=== PATIENT | female | born 1965 | race Caucasian/White ===

== ENCOUNTER 2020-07-11 09:02 | Outpatient (CLI) | payer OTHER, SELFPAY ==
--- NOTE | ~2020-07-11 | MM_ITS ---
EXAMINATION: MM scrn wicho implant BI w carlos HISTORY: Screening mammogram TECHNIQUE: Craniocaudal and mediolateral oblique 3-D tomosynthesis images with implant displacement a nd synthetic 2-D images were generated. Craniocaudal and mediolateral oblique views of the breasts wi thout implant displacement were obtained using full field digital mammography. CAD analysis was submi tted and interpreted. COMPARISON: 04/30/2019, 09/01/2017, 04/27/2015 BREAST PARENCHYMAL COMPOSITION: The breasts are extremely dense, which lowers the sensitivity of mamm ography. FINDINGS: There is no evidence of suspicious mass, calcification, or architectural distortion to sugg est malignancy in either breast. There has been no suspicious interval change. IMPRESSION: 1. No mammographic evidence of malignancy. 2. Recommend routine screening mammography in one year. BI-RADS Category 1: Negative Reviewed, dictated and finalized at location A. [employer]
== END 2020-07-11 09:03 | disposition home or self-care (01) ==
LOC: ANHIMG 09:05
PROVIDERS: PCP Internal Medicine; Visit Provider Advanced Practice Midwife
DX: Z12.31 Encounter for screening mammogram for malignant neoplasm of breast (principal)
CPT/HCPCS: 77063; 77067

== ENCOUNTER 2021-08-28 15:11 | Outpatient (CLI) | payer OTHER, SELFPAY ==
--- NOTE | ~2021-08-28 | MM_ITS ---
EXAMINATION: MM scrn wicho implant BI w carlos HISTORY: Screening mammogram TECHNIQUE: Craniocaudal and mediolateral oblique 3-D tomosynthesis images with implant displacement a nd synthetic 2-D images were generated. Craniocaudal and mediolateral oblique views of the breasts wi thout implant displacement were obtained using full field digital mammography. CAD analysis was submi tted and interpreted. COMPARISON: July 11, 2020, April 30, 2019, September 01, 2017 bilateral implant screening mammogram examinations BREAST PARENCHYMAL COMPOSITION: The breasts are extremely dense, which lowers the sensitivity of mamm ography. FINDINGS: There is no evidence of suspicious mass, calcification, or architectural distortion to sugg est malignancy in either breast. There has been no suspicious interval change. IMPRESSION: 1. No mammographic evidence of malignancy. 2. Recommend routine screening mammography in one year. BI-RADS Category 1: Negative Reviewed, dictated and finalized at location A.
== END 2021-08-28 15:12 | disposition home or self-care (01) ==
LOC: ANHIMG 15:12
PROVIDERS: PCP Internal Medicine; Visit Provider Advanced Practice Midwife
DX: Z12.31 Encounter for screening mammogram for malignant neoplasm of breast (principal)
CPT/HCPCS: 77063; 77067

== ENCOUNTER → 2021-09-18 10:39 | Outpatient (CLI) | payer OTHER, SELFPAY ==
--- NOTE | ~2021-09-18 | CT_ITS ---
EXAMINATION: CT orbit BI wo/w con EXAM DATE: 09/18/2021 11:17 INDICATION: Trigeminal neuralgia. Pain behind left eye. Postnasal drip. TECHNIQUE: Spiral CT of the orbits was acquired in the axial plane without and then with intravenous injection of 75 mL Omnipaque 350. Coronal reformatted images were also reviewed. The dose-length pr oduct (DLP) for this examination was 450.96 mGy-cm. The exposure was tailored according to patient s ize, and iterative reconstruction (ASIR) was used as additional dose reduction technique. There is n o prior study for comparison. FINDINGS: There are no displaced acute nasal bone fractures. The mandible, sinuses and orbits are in tact. The orbits, globes and extraocular muscles are unremarkable. The visualized sinuses and mas toid air cells are well aerated. Pterygopalatine fossae are unremarkable. Meckel's caves have expec tayo appearance, density, symmetry. IMPRESSION: Unremarkable CT orbits exam. Reviewed, dictated and finalized at location B.
== END ==
PROVIDERS: PCP Internal Medicine; Visit Provider Ophthalmology
DX: G50.0 Trigeminal neuralgia (principal)
CPT/HCPCS: 70482; Q9967

== ENCOUNTER 2021-10-17 15:08 | Outpatient (CLI) | payer OTHER, SELFPAY ==
--- NOTE | ~2021-10-17 | DEXA_ITS ---
Bone Density Report Name: AARON HAUSER Age: 56 Sex: Female Ethnicity: White Date of : 1965 Indication: postmenopausal; screening for osteoporosis; anorexia or bulimia; Referring Provider: EZIO SIERRA Study: Bone densitometry was performed. Exam Date: October 17, 2021 Accession number: [id number] Bone Density: Region BMD T-score Z-score Classification AP Spine(L1-L4) 1.261 1.9 3.2 Normal Femoral Neck (Left) 0.658 -1.7 -0.6 Osteopenia Total Hip (Left) 0.854 -0.7 0.1 Normal Femoral Neck (Right) 0.704 -1.3 -0.1 Osteopenia Total Hip (Right) 0.875 -0.5 0.2 Normal Total Hip Mean 0.865 -0.6 0.2 Normal World Health Organization criteria for BMD impression classify patients as: Normal (T-score at or above -1.0), Osteopenia (T-score between -1.0 and -2.5), or Osteoporosis (T-score at or below -2.5). 10-year Fracture Risk(1): Major Osteoporotic Fracture 6.7% Hip Fracture 0.7% Reported Risk Factors: [place] (), Neck BMD=0.658, BMI=19.4 (1) FRAX(R) Version 3.08. Fracture probability calculated for an untreated patient. Fracture probability may be lower if the patient has received treatment. Previous Exams: Region Exam Age BMD T-score BMD Change BMD Change Date g/cm2 vs Baseline vs Previous AP Spine (L1-L4) 10/17/2021 56 1.261 1.9 -0.072 (-5.4%) -0.072 (-5.4%) 04/30/2019 53 1.333 2.6 Total Hip(Left) 10/17/2021 56 0.854 -0.7 -0.050 (-5.5%) -0.050 (-5.5%) 04/30/2019 53 0.904 -0.3 Total Hip(Right) 10/17/2021 56 0.875 -0.5 -0.041 (-4.5%) -0.041 (-4.5%) 04/30/2019 53 0.916 -0.2 *Denotes significance at 95% confidence level, LSC for AP Spine = 0.022 g/cm2, LSC for Total Hip = 0.027 g/cm2 Clinical Information Provided by Patient: Has the following medical conditions: Anorexia or Bulimia Patient maximum height was 64 Menopause Age: 55 Drinks caffeinated beverages Onset of menses at age 9 Number of children 3 Missed period for more than 6 months in a row Impression: The patient has low bone mass, based on the Left Femoral Neck T-score. The patient has an estimated ten-year risk of hip fracture of 0.7% and an estimated ten-year risk of major fracture of 6.7%, based on the WHO FRAX algorithm. The BMD for the AP Spine (L1-L4) decreased, changing by -5.4% since the last DXA exam. The BMD for the Total Hip(Left) decreased, changing by -5.5% since the last DXA exam. The BMD for the Total Hip(Rig
== END 2021-10-17 15:09 | disposition home or self-care (01) ==
LOC: ANHIMG 15:09
PROVIDERS: PCP Internal Medicine; Visit Provider Advanced Practice Midwife
DX: M81.0 Age-related osteoporosis without current pathological fracture (principal); M85.852 Other specified disorders of bone density and structure, left thigh; M85.851 Other specified disorders of bone density and structure, right thigh
CPT/HCPCS: 77080

== ENCOUNTER 2022-03-06 03:52 | Emergency (ER) | payer OTHER, SELFPAY ==
--- NOTE | ~2022-03-06 | XR_ITS ---
EXAMINATION: XR hand LT min 3V DATE: 03/06/2022 04:35 INDICATION: Left ring finger injury. TECHNIQUE: 4 views of left hand were obtained. COMPARISON: None. FINDINGS: Bone alignment is normal. There is a fracture deformity of base of fourth middle phalanx. T here is mild osteoarthritis of first carpometacarpal joint, first metacarpophalangeal joint, third an d fourth proximal interphalangeal joints, and second distal interphalangeal joint. IMPRESSION: 1. Fracture deformity of base of fourth middle phalanx, which may be old. 2. Mild polyarticular osteoarthritis. Reviewed, dictated and finalized at location A.
--- NOTE | 2022-03-06 04:19 | ED.GENADULT ---
HPI - General Adult General Chief complaint: Extremity Injury, Upper Stated complaint: left ring finger injury Time Seen by Provider: 03/06/22 03:54 History of Present Illness HPI narrative: 56-year-old female presenting to the emergency department for evaluation of a injury to her left ring finger. Patient states she was walking her dog when the dog ran and caused an injury to her finger. Patient states she did have some minor swelling to her finger prior to going to bed when she woke up in the night her ring finger was significantly swollen and she cannot get her rings off. Related Data Allergies Allergy/AdvReac Type Severity Reaction Status Date / Time Penicillins Allergy Hives Verified 03/06/22 03:53 Review of Systems Review of Systems: CONSTITUTIONAL: Denies fever, chills, or sweats. EYES: Denies visual changes, redness, or discharge. ENT: Denies rhinorrhea, congestion, sore throat, or otalgia. CARDIOVASCULAR: Denies chest pain, palpitations, or edema. RESPIRATORY: Denies cough or dyspnea. GASTROINTESTINAL: Denies abdominal pain, nausea, vomiting, or diarrhea. GENITOURINARY: Denies dysuria or hematuria. SKIN: Swelling to left ring finger MUSCULOSKELETAL: Swelling of left ring finger NEUROLOGIC: Denies headache, numbness, or weakness. [facility] Family History Family History (Updated 09/13/16 @ 23:56 by DOCTOR UNKNOWN) Sibling Patient's brother is in good health Father Family history of chronic obstructive pulmonary disease, Onset Age: 69 Family history of irritable bowel syndrome Family history of malignant neoplasm of urinary bladder Patient's father is Mother Family history of malignant neoplasm of ovary, Onset Age: 66 Patient's mother is Social History Social History Alcohol intake: current Exam Narrative: APPEARANCE: Well appearing, no pain, no distress, well-nourished. HEAD: normocephalic, atraumatic. EYES: PERRLA/EOMI, conjunctivae clear. NOSE: Normal no drainage NECK: Supple. No adenopathy, no masses. RESPIRATORY: Airway patent, respirations nonlabored. Clear to auscultation bilaterally, no rales, rhonchi, wheezing. CARDIOVASCULAR: Regular rate and rhythm without murmurs rubs or gallops. ABDOMINAL: Soft, nontender, nondistended, normal bowel sounds MUSCULOSKELETAL: Moves all extremities. Strength/ROM intact, No edema, No calf tenderness. Ecchymosis and tenderness to left ring finger. NEURO: Alert. Cranial nerves II through XII intact. Grossly intact SKIN: Warm, dry. Normal Color PSYCHIATRIC: Normal affect/mood. Course Course Emergency Course: Patient had 2 rings that were removed from the left ring finger. Patient did feel improved after removal of the rings. X-ray showed no acute fractures or dislocations. Patient does have normal range of motion of the affected finger other than some limitation of range of motion due to swelling. Patient was encouraged to have close follow-up with her primary care physician. Vital Signs Vital signs: Vital Signs Pulse Rate 88 03/06/22 04:59 Respiratory Rate 18 03/06/22 04:59 Blood Pressure 130/88 03/06/22 04:59 Pulse Oximetry 100 03/06/22 04:59 Pulse Rate 88 03/06/22 04:59 Respiratory Rate 18 03/06/22 04:59 Blood Pressure 130/88 03/06/22 04:59 Pulse Oximetry 100 03/06/22 04:59 Procedures Foreign Body Removal Foreign Body #1: Foreign Body Removal Time: 04:20 Time Out Performed: yes Site: left and hand Description of foreign body: other (wedding ring) Sedation/Analgesia: none Technique: other (ring removal) Complications: none Post-procedure exam: awake, alert Medical Decision Making Vital Signs Vital Signs: Vital Signs Pulse Rate 88 03/06/22 04:59 Respiratory Rate 18 03/06/22 04:59 Blood Pressure 130/88 03/06/22 04:59 Pulse Oximetry 100 03/06/22 04:59 Pulse Rate 88 03/06/22 04:59 Respiratory
[2022-03-06 04:59] VITALS: BP 130/88; PULSE 88; RESP 18; O2SAT 100
--- NOTE | 2022-03-12 02:49 | PC.NURSE ---
The wound was on the left finger not the right finger.
== END 2022-03-06 05:04 | disposition home or self-care (01) ==
PROVIDERS: Emergency Provider Emergency Medicine; PCP Internal Medicine
DX: S69.92XA Unspecified injury of left wrist, hand and finger(s), initial encounter (principal); X58.XXXA Exposure to other specified factors, initial encounter; Y93.K1 Activity, walking an animal
CPT/HCPCS: 73130; 99283

== ENCOUNTER 2024-06-03 14:54 | Outpatient (CLI) | payer OTHER, SELFPAY ==
--- NOTE | ~2024-06-03 | MM_ITS ---
EXAMINATION: MM scrn wicho implant BI w carlos HISTORY: Screening. Retropectoral silicone implants. TECHNIQUE: Craniocaudal and mediolateral oblique 3-D tomosynthesis images were obtained and synthetic 2-D images were generated. CAD analysis was submitted and interpreted. Implant displaced views were also performed COMPARISON: 08/28/2021 and dating back to 09/01/2017 BREAST PARENCHYMAL COMPOSITION: The breasts are extremely dense, which lowers the sensitivity of mamm ography. FINDINGS: Stable parenchymal pattern without suspicious microcalcifications, architectural distortion, discrete masses or significant asymmetry. IMPRESSION: 1. No mammographic evidence of malignancy. 2. Recommend routine screening mammography in one year. BI-RADS Category 1: Negative Reviewed, dictated and finalized at location A. RIBUTION DRIVER
== END 2024-06-03 14:55 | disposition home or self-care (01) ==
LOC: MICIMG 14:55
PROVIDERS: PCP Internal Medicine; Visit Provider Nurse Practitioner
DX: Z12.31 Encounter for screening mammogram for malignant neoplasm of breast (principal); Z13.820 Encounter for screening for osteoporosis
CPT/HCPCS: 77063; 77067

== ENCOUNTER 2024-07-05 08:02 | Outpatient (CLI) | payer OTHER, SELFPAY ==
--- NOTE | ~2024-07-05 | DEXA_ITS ---
Bone Density Report Name: AARON HAUSER Age: 58 Sex: Female Ethnicity: White Date of : 1965 Indication: postmenopausal; screening for osteoporosis; Referring Provider: ASIA, THONG Samson Study: Bone densitometry was performed. Exam Date: July 05, 2024 Accession number: [id number] Bone Density: Region BMD T-score Z-score Classification AP Spine(L1-L4) 1.147 0.9 2.3 Normal Femoral Neck (Left) 0.596 -2.3 -1.0 Osteopenia Total Hip (Left) 0.803 -1.1 -0.2 Osteopenia Femoral Neck (Right) 0.643 -1.9 -0.6 Osteopenia Total Hip (Right) 0.778 -1.3 -0.4 Osteopenia Total Hip Mean 0.791 -1.2 -0.3 Osteopenia World Health Organization criteria for BMD impression classify patients as: Normal (T-score at or above -1.0), Osteopenia (T-score between -1.0 and -2.5), or Osteoporosis (T-score at or below -2.5). 10-year Fracture Risk(1): Major Osteoporotic Fracture 9.0% Hip Fracture 1.5% Reported Risk Factors: [place] (), Neck BMD=0.596, BMI=19.4 (1) FRAX(R) Version 3.08. Fracture probability calculated for an untreated patient. Fracture probability may be lower if the patient has received treatment. Previous Exams: Region Exam Age BMD T-score BMD Change BMD Change Date g/cm2 vs Baseline vs Previous AP Spine (L1-L4) 07/05/2024 58 1.147 0.9 -0.185 (-13.9% -0.114 (-9.0%) 10/17/2021 56 1.261 1.9 -0.072 (-5.4%) -0.072 (-5.4%) 04/30/2019 53 1.333 2.6 Total Hip(Left) 07/05/2024 58 0.803 -1.1 -0.100 (-11.1% -0.050 (-5.9%) 10/17/2021 56 0.854 -0.7 -0.050 (-5.5%) -0.050 (-5.5%) 04/30/2019 53 0.904 -0.3 Total Hip(Right) 07/05/2024 58 0.778 -1.3 -0.139 (-15.1% -0.098 (-11.1% 10/17/2021 56 0.875 -0.5 -0.041 (-4.5%) -0.041 (-4.5%) 04/30/2019 53 0.916 -0.2 *Denotes significance at 95% confidence level, LSC for AP Spine = 0.022 g/cm2, LSC for Total Hip = 0.027 g/cm2 # Denotes dissimilar scan types or analysis methods Clinical Information Provided by Patient: Has used the following medications: Vitamin D, Calcium Patient maximum height was 64 Menopause Age: 55 Drinks caffeinated beverages Onset of menses at age 9 Number of children 3 Missed period for more than 6 months in a row Impression: The patient has low bone mass, based on the Left Femoral Neck T-score. The patient has an estimated ten-year risk of hip fracture of 1.5% and an estimated ten-year risk of major fracture of 9%, based on the WHO FRAX algorithm. No significant bone loss was observed. Discussion: BONE DENSITY IS LOW AT ONE OR MORE SKELETAL SITES. This patient's lowest T-score is low at one or more skeletal sites. It meets the World Health Organization's (WHO) criteria for ?low bone mass? (T-score between -1.0 and -2.5). The patient's 10-year risk of fracture as calculated by FRAX is less than the threshold where pharmacological therapy is recommended by the National Osteoporosis Foundation (NOF). However, all treatment decisions require clinical judgment and consideration of individual patient factors, including patient preferences, comorbidities, previous drug use, risk factors not captured in the FRAX model (e.g., frailty, falls, vitamin D deficiency, increased bone turnover, interval significant decline in bone density) and possible under or overestimation of fracture risk by FRAX. The patient should follow a healthful lifestyle (good nutrition with adequate calcium and vitamin D, and appropriate weight-bearing exercise). Follow-Up: Consider repeating this study in 2 to 3 years to reassess this patient's status, or sooner if there is some new clinical indication. Reported by: TUAN on 07/05/2024 8:38:00 AM. Reviewed, dictated and finalized at location ASweta LOZADA
--- OUTSIDE RECORDS SUMMARY | 2024-07-05 08:16 | XMS_ITS | Encounter Summary ---
Author Organization [facility] Address [address] [place] [address]. [place], [place] [id number] [place] [address] Care Team Providers Care Spooling Supervisor Name Role Phone Jeffrey Szymanski MD Primary Care Provider [phone] Encounter Details Date Type Department Care Team (Late st Contact Info) Description 09/24/2023 BodeTreet Message Enc [facility] Multispecialty Care - [facility] [address] [facility], [address] [place] [address] Ahsan Sinha MD [address] [place] [address] MRI report Social History Tobacco Use Types Packs/Day Years Used Date Smoking Tobacco: Never Smokeless Tobacco: Never Alcohol Use Standard Drinks/Week Comments Yes 3 (1 standard drink = 0.6 oz pur e alcohol) Maybe once a week AUDIT-C Answer Date Recorded Frequency of Alcohol Consumption 2-4 times a fri03/18/2019 Average Number of Drinks 3 or 4 019 Frequency of Binge Drinking Never 03/09 PHQ-2 Answer Date Recorded Patient Health Questionnaire-2 Score 0 08/19/2023 Comments No Sex and Gender Information Value Date Recorded Sex Assigned at Not on file Legal Sex Female 6:36 PM CDT Gender Identity Female 08/24/2021 6:15 AM CDT Sexual Orientation Not on file documented as of this encounter Progress Notes * Maritza Dial MA - 09/25/2023 10:45 AM CDT Spoke to pt. Regarding MRI results, explained she can continue her daily routines, just need to notlift heavy objects and be careful not to fall. Pt. Verbalized understanding. documented in this encounter Plan of Treatment Upcoming Encounters Date Type Department Care Team (Late st Contact Info) Description 07/29/2024 12:30 PM HAND I THERMAL CUTTER Appointment [facility] [place] [address] Hanna Landon APRN 3 [facility] [address] [place] [address] 08/05/2024 3:20 PM HAND I THERMAL CUTTER Office Visit [facility] Medical [facility] Multispecialty Care - [facility] [address] [facility], [address] [place] [address] Denis Harvey MD [address] [place] [address] 08/26/2024 10:20 AM CDT Office Visit [facility] Family & Internal Medicine [address] [address] Jeffrey Szymanski MD [address] [place] [address] documented as of this encounter Visit Diagnoses Not on filedocumented in this encounter Additional Health Concerns Assessment Noted Time PHQ-9 Depression Total Score: 1 07/01/19 23 4:01 PM HAND I THERMAL CUTTER documented as of this encounter Care Teams Spooling Supervisor Relationship Specialty Start Date End Date Jeffrey Szymanski MD [address] [place] [address] PCP - General 12/15/15 documented as of this encounter
--- OUTSIDE RECORDS SUMMARY | 2024-07-05 08:17 | XMS_ITS | Encounter Summary ---
Author Organization [facility] Address [address] [place] [address]. [place], [place] [id number] [place] [address] Care Team Providers Care Gaming Manager Name Role Phone Jeffrey Szymanski MD Primary Care Provider [phone] Encounter Details Date Type Department Care Team (Late st Contact Info) Description 03/01/2022 Mr. Numbert Message Enc [facility] Family & Internal Medicine [place] [address] [place] [address] Jeffrey Szymanski MD [address] [place] [address] [phone] Blood test results Social History Tobacco Use Types Packs/Day Years [...] Drinking Never 03/09 PHQ-2 Answer Date Recorded PHQ-2 Score - If the patient scores above 3, please move on to questions 3-9 0 08/24/2021 Comments No Sex and Gender Information Value Date Recorded Sex Assigned at Not on file Legal Sex Female 6:36 PM CDT Gender Identity Female 08/24/2021 6:15 AM CDT Sexual Orientation Not on file COVID-19 Exposure Response Date Recorded In the last 10 days, have yo u been in contact with someone who was confirmed or suspected to have Coronavirus/COVID-19? No / Unsure 02/28/2022 7:16 AM CDT documented as of this encounter Plan of Treatment Upcoming Encounters Date Type Department Care Team (Late st Contact Info) Description 07/29/2024 12:30 PM AIRPORT GUIDE Appointment [facility] [address] Hanna Landon, KATHERIN [address] [facility] [address] [place] [address] 08/05/2024 3:20 PM AIRPORT GUIDE Office Visit [facility] Medical Group Multispecialty Care - [facility] [address] [facility], [address] [place] [address] Denis Harvey MD 3 [place] [address] 08/26/2024 10:20 AM CDT Office Visit [facility] Family & Internal Medicine - [address] [address] Jeffrey Szymanski MD [address] [place] [address] documented as of this encounter Visit Diagnoses Not on filedocumented in this encounter Additional Health Concerns Assessment Noted Time PHQ-9 Depression Total Score: 0 08/25/19 10:05 AM CDT documented as of this encounter Care Teams Gaming Manager Relationship Specialty Start Date End Date Jeffrey Szymanski MD [address] [place] [address] PCP - General 12/15/15 documented as of this encounter
--- OUTSIDE RECORDS SUMMARY | 2024-07-05 08:17 | XMS_ITS | Encounter Summary ---
Author Organization [facility] Address [address] [place] [address]. [place], [place] [address] [place] [address] Care Team Providers Care Ceramist Name Role Phone Jeffrey Szymanski MD Primary Care Provider [phone] Encounter Details Date Type Department Care Team (Latest Contact Info) Description 06/25/2024 Scan [facility] Scanned, Doc Med Group Social History Tobacco Use Types Packs/Day Years Used Date Smoking Tobacco: Never Smokeless Tobacco: Never Alcohol Use Standard Drinks/Week Comments Yes 3 (1 standard drink = 0.6 oz pur e alcohol) Maybe once a week [facility] Utilities Answer Date Recorded In the past 12 months has e [employer], gas, oil, or water [employer] threatened to shut off services in your home? No 10/17/2023 Humiliation, Afraid, Rape, and Kick questionnair e Answer Date Recorded Within the last year, have y ou been afraid of your partner or ex-partner? No 10/17/2023 Within the last year, have y ou been humiliated or emotionally abused in other ways by your partner or ex-partner? No Within the last year, have y ou been kicked, hit, slapped, or otherwise physically hurt by your partner or ex-partner? No 10/17/2023 Within the last year, have y ou been raped or forced to have any kind of sexual activity by your partner or ex-partner? No 10/17/2023 AUDIT-C Answer Date Recorded Frequency of Alcohol Consumption 2-4 times a fri03/18/2019 Average Number of Drinks 3 or 4 019 Frequency of Binge Drinking Never 03/09 Overall Financial Resource Strain (CARDIA) Answe r Date Recorded How hard is it for you to pa y for the very basics like food, housing, medical care, and heating? Not hard at all 10/17/2023 PHQ-2 Answer Date Recorded Patient Health Questionnaire-2 Score 0 08/19/2023 Hunger Vital Sign Answer Date Recorded Within the past 12 months, y ou worried that your food would run out before you got the money to buy more. Never true 10/17/19 24 Within the past 12 months, t he food you bought just didn't last and you didn't have money to get more. Never true 10/17/2023 PRAPARE - Transportation Answer Date Re corded In the past 12 months, has l ack of transportation kept you from medical appointments or from getting medications? No 10/07 In the past 12 months, has l ack of transportation kept you from meetings, work, or from getting things needed for daily living? No 10/17/2023 Housing Stability Vital Sign Answer Solomon e Recorded In the last 12 months, was t here a time when you were not able to pay the mortgage or rent on time? No 10/17/2023 In the past 12 months, how m any times have you moved where you were living? 1 10/17/2023 At any time in the past 12 m [facility], were you homeless or living in a correction (including now)? No 10/17/2023 Comments No Sex and Gender Information Value Date Recorded Sex Assigned at Not on file Legal Sex Female 6:36 PM CDT Gender Identity Female 08/24/2021 6:15 AM CDT Sexual Orientation Not on file documented as of this encounter Functional Status * Are you deaf or do you have serious difficulty hearing Answer Date of Assessment Author Status No 10/17/2023 5:38 PM CDT Maicol Simon RN Active * Are you blind or do you have serious difficulty seeing, even when wearing glasses? Answer Date of Assessment Author Status No 10/17/2023 5:38 PM CDT Maicol Simon RN Active * Do you have serious difficulty walking or climbing stairs? Answer Date of Assessment Author Status No 10/17/2023 5:38 PM CDT Maicol Simon RN Active * Do you have difficulty dressing or bathing? Answer Date of Assessment Author Status No 10/17/2023 5:38 PM CDT Maicol Simon RN Active * Because of a physical, mental, or emotional condition, do you have difficulty doing errands alone such as visiting a doctor's office or shopping? Answer Date of Assessment Author Status No 10/17/2023 5:38 PM CDT Maicol Simon RN Active documented as of this encounter Mental Status * Because of a physical, mental, or emotional condition, do you have serious difficulty concentrating, remembering, or making decisions? Answer Entry Date Author Status No 10/17/2023 5:38 PM CDT Maicol Simon RN Active documented in this encounter Plan of Treatment Upcoming Encounters Date Type Department Care Team (Late st Contact Info) Description 07/29/2024 12:30 PM RURAL SOCIOLOGIST Appointment [facility] [place] [address] Hanna Landon APRN 3 [facility] [address] [place] [address] 08/05/2024 3:20 PM RURAL SOCIOLOGIST Office Visit [facility] Multispecialty Care - [facility] [address] [facility], [address] [place] [address] Denis Harvey MD 3 [place] [address] 08/26/2024 10:20 AM CDT Office Visit [facility] Family & Internal Medicine - [address] [phone] Jeffrey Szymanski MD [address] [place] [address] documented as of this encounter Visit Diagnoses Not on filedocumented in this encounter Additional Health Concerns Assessment Noted Time PHQ-9 Depression Total Score: 1 07/01/19 23 4:01 PM RURAL SOCIOLOGIST documented as of this encounter Care Teams Ceramist Relationship Specialty Start Date End Date Jeffrey Szymanski MD [address] [place] [address] PCP - General 12/15/15 documented as of this encounter
--- OUTSIDE RECORDS SUMMARY | 2024-07-05 08:17 | XMS_ITS | Continuity of Care Document ---
Author Name [facility] Organization [facility] Care Team Providers Care Color Expert Name Role Phone [facility] Unavailable Unavailable Medications Combined list of outpatient medications from Department of Defense and Veterans Affairs facilities.Medications provided include 1) outpatient medications from the last 15 months, and 2) patient-reported medications. Medication Details Route Status Patient Instructions Prescription Expires Prescription Number Last Dispense Date Ordering Provider Order Date Order Qty Source DIAZEPAM (DIAZEPAM), 5MG, TABLET, ORAL, IVAX PHARMACEUT, 500 ea. BOTTLE Active [id number] 2023 30 Pharmac y Data Transac tion Service Facilit y ESCITALOPRA M OXALATE (escitalopr am oxalate), 20 MG, TABLET, ORAL, [facility], 1000 ea. BOTTLE Active [id number] 4 2023 45 Pharmac y Data Transac tion Service Facilit y HYDROCODONE -ACETAMINOP HEN (HYDROCODON E/ACETAMINO PHEN), 5MG-325MG, TABLET, ORAL, MALLINCKROD T PH, 500 ea. BOTTLE Active [id number] 4 2023 50 Pharmac y Data Transac tion Service Facilit y LEVOTHYROXI NE SODIUM (levothyrox ine sodium), 88 MCG, TABLET, ORAL, AMNEAL PHARMACE, 100 ea. BOTTLE Active [id number] 4 2023 90 Pharmac y Data Transac tion Service Facilit y LEVOTHYROXI NE SODIUM (levothyrox ine sodium), 88 MCG, TABLET, ORAL, AMNEAL PHARMACE, 100 ea. BOTTLE Active [id number] 2023 90 Pharmac y Data Transac tion Service Facilit y LEVOTHYROXI NE SODIUM (levothyrox ine sodium), 88 MCG, TABLET, ORAL, AMNEAL PHARMACE, 100 ea. BOTTLE Active [id number] 2022 90 Pharmac y Data Transac tion Service Facilit y METHYLPHENI DATE HCL (methylphen idate HCl), 10 MG, TABLET, ORAL, [employer] 100 ea. BOTTLE Cancele d [id number] : 2023 0 Pharmac y Data Transac tion Service Facilit y METHYLPHENI DATE HCL (methylphen idate HCl), 10 MG, TABLET, ORAL, [employer] 100 ea. BOTTLE Active [id number] 2023 60 Pharmac y Data Transac tion Service Facilit y METHYLPHENI DATE HCL (METHYLPHEN IDATE HCL), 10 MG, TABLET, ORAL, MALLINCKROD T PH, 100 ea. BOTTLE Active [id number] 2023 60 Pharmac y Data Transac tion Service Facilit y METHYLPHENI DATE HCL (METHYLPHEN IDATE HCL), 20 MG, TABLET, ORAL, MALLINCKROD T PH, 100 ea. BOTTLE Cancele d [id number] : 2022 0 Pharmac y Data Transac tion Service Facilit y METHYLPHENI DATE HCL ER (CD) (methylphen idate HCl), 20 MG, CPBP 30-70, ORAL, MALLINCKROD T PH, 100 ea. BOTTLE Active [id number] 2023 30 Pharmac y Data Transac tion Service Facilit y METHYLPHENI DATE HCL ER (CD) (methylphen idate HCl), 20 MG, CPBP 30-70, ORAL, MALLINCKROD T PH, 100 ea. BOTTLE Active [id number] 2023 30 Pharmac y Data Transac tion Service Facilit y METHYLPHENI DATE HCL ER (CD) (methylphen idate HCl), 20 MG, CPBP 30-70, ORAL, MALLINCKROD T PH, 100 ea. BOTTLE Active [id number] 2023 30 Pharmac y Data Transac tion Service Facilit y METHYLPHENI DATE HCL ER (CD) (methylphen idate HCl), 20 MG, CPBP 30-70, ORAL, MALLINCKROD T PH, 100 ea. BOTTLE Active [id number] 4 2023 30 Pharmac y Data Transac tion Service Facilit y NALOXONE HCL (naloxone HCl), 4 MG, SPRAY, NASAL, [employer] [place], 2 ea. BLIST PACK Cancele d [id number] : 2023 0 Pharmac y Data Transac tion Service Facilit y ORPHENADRIN E CITRATE (ORPHENADRI NE CITRATE), 100 MG, TABLET SA, ORAL, GAVIS PHARMACEU, 100 ea. BOTTLE Active [id number] 4 2023 30 Pharmac y Data Transac tion Service Facilit y VALACYCLOVI R (VALACYCLOV IR HCL), 1000 MG, TABLET, ORAL, [employer]UROB[employer]ARM, 90 ea. BOTTLE Cancele d [id number] : 2023 0 Pharmac y Data Transac tion Service Facilit y VALACYCLOVI R (VALACYCLOV IR HCL), 1000 MG, TABLET, ORAL, AUROBINDO PHARM, 90 ea. BOTTLE Active [id number] 2023 21 Pharmac y Data Transac tion Service Facilit y VALACYCLOVI R (VALACYCLOV IR HCL), 1000 MG, TABLET, ORAL, AUROBINDO PHARM, 90 ea. BOTTLE Active [id number] 2023 21 Pharmac y Data Transac tion Service Facilit y VALACYCLOVI R (valacyclov ir HCl), 1000 MG, TABLET, ORAL, CAMBER PHARMACE, 30 ea. BOTTLE Cancele d [id number] : 2023 0 Pharmac y Data Transac tion Service Facilit y VALACYCLOVI R (VALACYCLOV IR HCL), 1000 MG, TABLET, ORAL, RANBAXY, 30 ea. BOTTLE Cancele d [id number] : 2022 0 Pharmac y Data Transac tion Service Facilit y Immunizations Combined list of available immunizations from the Department of Defense and Veterans Affairs facilities. Immunization Series Date Given Administered By Site Reaction Lot Number CVX Code Drug Senior Water Resources Engineer Status Comments Source COVID-19, mRNA, LNP-S, PF, 30 mcg/0.3 mL dose, frank-sucrose 2021 TALITA qcue [place] (PFR) Not Given COVID-19, mRNA, LNP-S, PF, 30 mcg/0.3 mL dose, frank-sucr ose [employer] influenza, injectable, quadrivalent, preservative free 2019 ALUL, () Not Given influenza , injectabl e, quadrival ent, preservat yandy free [employer] influenza virus vaccine, whole virus 1 2001 Unknown, Provider 16 Transcribed (TRS) complet ed influenza virus vaccine, whole virus [employer] influenza virus vaccine, whole virus 1 1998 Unknown, Provider [id number] Connaualicia (CON) complet ed influenza virus vaccine, whole virus [employer] Social History Combined list of available smoking, tobacco, and other social history from Department of Defense and Veterans Affairs facilities. Social History Type Response Date Comment Sour e This section is an empty social history section. DoD
--- OUTSIDE RECORDS SUMMARY | 2024-07-05 08:18 | XMS_ITS | Clinical Summary ---
Author Organization [facility] Address [address] [place] [address]. [place], [place] [address] [place] [address] Care Team Providers Care Private Branch Exchange Repairer Name Role Phone Jeffrey Szymanski MD Primary Care Provider [phone] Allergies Active Allergy Reactions Criticality Noted Date Comments Penicillins Hives 06/14/2020 Medications Calcium Carb-Cholecalcifer ol (CALCIUM 500 +D OR) Take 2 chewable tablet by mouth daily. Active BONE STIMULATOR, DME,Indications:Ce rvical myelopathy (CMS/HCC [facility]/HCC) Wear 4 hours daily. Can break up into multiple sessions totaling 4 hours. 1 Device 10/03/19 24 Active vitamin D3, cholecalciferol, 125 mcg capsule Take 1 capsule (125 mcg total) by mouth daily. Active escitalopram (LEXAPRO) 20 MG tabletIndications: Mild episode of recurrent major depressive disorder ([facility]) TAKE ONE-HALF (1/2) TABLET DAILY 45 tablet 3 01/12/20 24 Active levothyroxine (SYNTHROID) 88 MCG tabletIndications: Acquired hypothyroidism TAKE 1 TABLET(88 MCG) BY MOUTH EVERY MORNING 90 tablet 3 02/25/20 24 Active methylphenidate (METADATE CD) 20 MG ER capsuleIndications :Fatigue, unspecified type Take 1 capsule (20 mg total) by mouth every morning. 30 capsule 06/28/19 25 Active methylphenidate (METADATE CD) 20 MG ER capsuleIndications :Fatigue, unspecified type Take 1 capsule (20 mg total) by mouth every morning. 30 capsule 05/13/20 24 025 Discontin ued(Reord er) methylphenidate (METADATE CD) 20 MG ER capsuleIndications :Fatigue, unspecified type Take 1 capsule (20 mg total) by mouth every morning. Please call office to schedule a follow-up to ensure continued refills. 15 capsule 06/11/19 25 025 Discontin ued(Reord er) Active Problems Problem Noted Date Diagnosed Date Polyneuropathy, peripheral sensorimotor axonal 0 10/29/2023 S/P cervical spinal fusion 10/17/2023 Attention deficit hyperactiv ity disorder (ADHD), predominantly inattentive type 10/15/2023 Elevated MCV 10/18/2020 Elevated fasting glucose 10/18/2020 Hypercalcemia 10/06/2020 Elevated liver function tests 10/06/2020 Hypertrophy of uterus 03/23/2019 Cold extremity without peripheral vascular disea se 09/04/2017 Fatigue 05/16/2015 Hypothyroidism 05/16/2015 Depression 07/01/2012 Atypical glandular cells on cervical Pap smear 0 01/30/2012 Resolved Problems Problem Noted Date Diagnosed Date Resolved Date Herpes zoster 03/19/2017 06/14/2020 Short of breath on exertion 09/17/2016 06/14/2020 Hypoglycemia 05/16/2015 03/29/2021 Encounters Date Type Department Care Team Description 06/28/2024 Telephone [facility] [address] [phone] Jeffrey Szymanski MD Medication Request 06/25/2024 Scan [facility] SRVCS Scanned, Doc [facility] 06/22/2024 Telephone [facility] - [address], [address] [place] [phone] Hanna Landon APRN Reschedule 06/11/2024 Telephone [facility] [address] [address] Jeffrey Szymanski MD Medication Request 06/03/2024 Scan [facility] HEALTH INFO SRVCS Scanned, Doc Med Group Mammogram (SCAN) 05/13/2024 Telephone [facility] [address] [address] Jeffrey Szymanski MD Refill Request 04/26/2024 1:40 PM CUSTOMER SUPPORT EXECUTIVE Office Visit [facility] - [facility] [address] [facility], [address] [place] [address] Hanna Landon APRN Follow Up (F/U with xray) 04/26/2024 10:02 AM CUSTOMER SUPPORT EXECUTIVE - 04/26/2024 11:59 PM CUSTOMER SUPPORT EXECUTIVE Hospital Encounter [facility] Diagnostic [place] [address] Denis Harvey MD Discharge Disposition: Home or Self Care (Routine Discharge) 04/26/2024 Travel from Last 3 Months Immunizations Name Administration Dates Next Due Fluzone 6 Months+ Quad (0.5 mL Prefilled Syringe) 03/29/2021,03/18/2019 Influenza (Generic) 07/05/2013 Influenza Adult (Generic) 03/19/2023,,03/18/2019, 018,04/29/2016,05/16/2015,06/17/2012 PFIZER COVID-19 (ORIGINAL FORMULATION, PURPLE CAP) mRNA, LNP-S, PF, 30 MCG/0.3 ML DOSE 01/01/2022,03/29/2021,09/11/2020, 021 Tdap (Boostrix) 05/12/2019 Family History Medical History Relation Comments Hypertension Brother 1 Hypertension Brother 2 COPD Father Cancer Father Bladder Emphysema Father Heart Disease Father Stroke Maternal Grandmother Arthritis Mother Rhumatoid Cancer Mother Ovarian Depression Mother Heart Disease Mother Ovarian Cancer Mother Relation Status Comments Brother 1 Brother 2 Father Maternal Grandmother Mother Social History Tobacco Use Types Packs/Day Years Used Date Smoking Tobacco: Never Smokeless Tobacco: Never Tobacco Cessation:Counseling Given: Not Answered Alcohol Use Standard Drinks/Week Comments Yes 3 (1 standard drink = 0.6 oz pur e alcohol) Maybe once a week [facility] Utilities Answer Date Recorded In the past 12 months has e [employer] gas, oil, or water [employer] threatened to shut off services in your [...] any time in the past 12 m [facility], were you homeless or living in a nursing home (including now)? No 10/17/2023 Comments No Sex and Gender Information Value Date Recorded Sex Assigned at Not on file Legal Sex Female 6:36 PM CDT Gender Identity Female 08/24/2021 6:15 AM CDT Sexual Orientation Not on file Last Filed Vital Signs Vital Sign Reading Time Taken Comments Blood Pressure 126/75 04/26/2024 1:38 PM CUSTOMER SUPPORT EXECUTIVE Pulse 64 04/26/2024 1:38 PM CUSTOMER SUPPORT EXECUTIVE Temperature 36.9 ??C (98.4 ??F) 04/26/2024 1:38 PM CS T Respiratory Rate 20 10/18/2023 12:33 PM CDT Oxygen Saturation 99% 04/26/2024 1:38 PM CUSTOMER SUPPORT EXECUTIVE Inhaled Oxygen Concentration - - Weight 51.7 kg (114 lb) 04/26/2024 1:38 PM CUSTOMER SUPPORT EXECUTIVE Height 160 cm (5' 3 ) 04/26/2024 1:38 PM CUSTOMER SUPPORT EXECUTIVE Body Mass Index 20.19 04/26/2024 1:38 PM CUSTOMER SUPPORT EXECUTIVE Plan of Treatment Upcoming Encounters Date Type Department Care Team (Late st Contact Info) Description 07/29/2024 12:30 PM CUSTOMER SUPPORT EXECUTIVE Appointment [facility] [place] [address] Hanna Landon APRN [address] [facility] [address] [place] [address] 08/05/2024 3:20 PM CUSTOMER SUPPORT EXECUTIVE Office Visit [facility] - [facility] [address] [facility], [address] [place] [address] Denis Harvey MD [address] [place] [address] 08/26/2024 10:20 AM CDT Office Visit [facility] [address] [phone] Jeffrey Szymanski MD [address] [place] [address] Health Maintenance Due Date Last Done Comments Hepatitis C 1982 Zoster Vaccines (1 of 2) 2014 Annual Physical 10/08/2022 10/08/2021, 10/03/2020 COVID-19 Vaccine ( season) 2024 03/19/2023, 01/01/2022, 03/29/2021, Additional history exists Influenza Adult (#1) 2024 03/19/2023, 03/29/2021, 02/29/2020, Additional history exists PHQ-2 (Physician [place]) 06/09/2024 08/19/2023 PHQ-2 (Physician [place]) 08/18/2024 08/19/2023 Cervical Cancer Screening Pap with HPV Testing (Age 30 to 64) Every 5 Years 03/27/2025 03/27/2020 Cervical Cancer Screening Pap Smear (Age 30 to 64) Every 3 Years 04/23/2026 04/23/2023, 04/10/2022 Cervical Cancer Screening with HPV 04/23/2026 Mammogram Screening 06/03/2026 06/03/2024, 08/28/2021, 07/11/2020, Additional history exists DTaP, Tdap and Td Vaccines (2 - Td or Tdap) 05/12/2029 05/12/2019 Colorectal Cancer Screening Colonoscopy (10 Years) 02/13/2032 02/12/2022, 02/12/2022 Colorectal Cancer Screening FIT-DNA (3 Years) Discontinued 03/24/2019 Meningococcal B Vaccine Aged Out No l onger eligible based on patient's age to complete this topic Meningococcal Vaccine Aged Out No shahida sam eligible based on patient's age to complete this topic Pneumococcal Vaccine: Pediatrics (0 to 5 Years) and At-Risk Patients (6 to 64 Years) Aged Out No longer eligible based on patient's age to complete this topic RSV Immunizations Under 20 Months Aged Out No longer eligible based on patient's age to complete this topic Medical Devices Implanted Type Area Photo Cartographer Device Identifier Shelf Expiration Date Model / Serial / Lot Medtronic Calvert Dbm Putty Implanted:Qty: 1 on 10/17/2023 by Denis Harvey MD at [facility] Bone N/A: Spine Cervical [employer] [id number] 02/03/2026 [id number] / [id number] / . Breast Breast Bilateral: Breast Medtronic Endoskeleton Tc Interbody System Implanted:Qty: 1 on 10/17/2023 by Denis Harvey MD at [facility] Cage N/A: Spine Cervical [employer] [id number] 08/13/2028 [id number] -N / / [id number] Description:C6-C7 Medtronic Endoskeleton Tc Interbody System Implanted:Qty: 1 on 10/17/2023 by Denis Harvey MD at [facility] Cage N/A: Spine Cervical [employer] [id number] 05/15/2028 [id number] -[id number] / / [id number] Description:C5-C6 37.5 Mm Elite Plate Implanted:Qty: 1 on 10/17/2023 by Denis Harvey MD at [facility] Plate N/A: Spine Cervical [employer] . [id number] / / . 4.0 X 14 Mm Screws Implanted:Qty: 6 on 10/17/2023 by Denis Harvey MD at [facility] Screw N/A: Spine Cervical [employer] . [id number] / / . Explanted Type Area Photo Cartographer Device Identifier Shelf Expiration Date Model / Serial / Lot Plate Holding Pins Explanted:Qty: 2 on 10/17/2023 by Denis Harvey MD at [facility] Pin N/A: Spine Cervical [employer] . [id number] / / . Distration Pin 12mm - [id number] Explanted:Qty: 1 on 10/17/2023 by Denis Harvey MD at [facility] Pin N/A: Spine Cervical [employer] . DP-12-TB / / . Distration Pin 12mm - [id number] Explanted:Qty: 1 on 10/17/2023 by Denis Harvey MD at [facility] Pin N/A: Spine Cervical [employer] . DP-12-TB / / . Procedures Procedure Name Priority Date/Time Associated Diagnosis Comments MAMMOGRAM GENERIC (SCAN ORDER) 06/03/2024 XR CERV SPINE AP+LAT 2V Routine 04/26/2024 10:12 AM CUSTOMER SUPPORT EXECUTIVE S/P cervical spinal fusion COLONOSCOPY Routine 02/12/2022 8:21 AM CDT OUTSIDE CYTOPATH CERV/VAG INTERPRET (PAP) 03/27/2020 COLOGUARD (SCAN ORDER) Routine 03/24/2019 from Last 3 Months or Most Recently Relevant to Health Maintenance Results * MAMMOGRAM GENERIC (SCAN ORDER) (06/03/2024) Anatomical Region Laterality Modality Other 06/03/2024 us Doc Med Group Scanned SCANNING Final Resu lt * XR CERV SPINE AP+LAT 2V (04/26/2024 10:12 AM CUSTOMER SUPPORT EXECUTIVE) Anatomical Region Laterality Modality Spine Radiographic Margo ging 04/28/2024 9:11 PM CUSTOMER SUPPORT EXECUTIVE Impressions 04/28/2024 9:18 PM CUSTOMER SUPPORT EXECUTIVE IMPRESSION: No acute findings. Referred By: ?? Interpreted By: Rishabh Hernandez DO, 04/28/2024 9:11 PM Narrative 04/28/2024 9:18 PM CUSTOMER SUPPORT EXECUTIVE [facility] [address] [place], [place] [address] EXAMINATION: XR CERV SPINE AP+LAT 2V HISTORY: 6 month postoperative evaluation after cervical spinal fusion surgery. COMPARISON: X-ray cervical spine 12/15/2023. TECHNIQUE: AP and lateral views of the cervical spine. FINDINGS: No evidence of acute fracture or dislocation. ??No evidence of osteolysis. ??No vertebral body height loss. ??There is multilevel degenerative disc disease and facet arthropathy. ??There is anterior cervical spinal fusion hardware from C5-C7. ??There are interbody spacer devices. ??No evidence of hardware complication. ??No prevertebral soft tissue swelling. ?? Procedure Note Rishabh Hernandez DO - 04/28/[address] [address] EXAMINATION: XR CERV SPINE AP+LAT 2V HISTORY: 6 month postoperative evaluation after cervical spinal fusion surgery. COMPARISON: X-ray cervical spine 12/15/2023. TECHNIQUE: AP and lateral views of the cervical spine. FINDINGS: No evidence of acute fracture or dislocation. No evidence of osteolysis.No vertebral body height loss. There is multilevel degenerative discdisease and facet arthropathy. There is anterior cervical spinal fusionhardware from C5-C7. There are interbody spacer devices. No evidence ofhardware complication. No prevertebral soft tissue swelling. IMPRESSION: No acute findings. Referred By: Interpreted By: Rishabh Hernandez DO, 04/28/2024 9:11 PM us Hanna Landon [facility] Final Resu lt * OUTSIDE CYTOPATH VAG/CERV PAP WITH HPV (03/27/2020) 03/27/2020 Narrative 03/27/2020 Ordered by an unspecified provider. us Documents Scanned SCANNING Final Result * COLOGUARD (SCAN) (03/24/2019) COLOGUARD NEGATIVE Stool specimen (specimen) 03/24/2019 us Documents Scanned SCANNING Edited Result - Final from Last 3 Months or Most Recently Relevant to Health Maintenance Insurance Advance Directives Documents on File Type Date Recorded Patient Housekeeping Associate Expl anation Advance Directives and Livin g Will 10/21/2023 10:28 AM Advance Directives and Livin g Will 10/21/2023 10:28 AM * Full Code (Latest Code Status on File) Date Activated Date Inactivated Comments 10/17/2023 5:21 PM 10/18/2023 4:27 PM Care Teams Private Branch Exchange Repairer Relationship Specialty Start Date End Date Jeffrey Szymanski MD [address] [place] [address] PCP - General 12/15/15
--- OUTSIDE RECORDS SUMMARY | 2024-07-05 08:18 | XMS_ITS | Encounter Summary ---
Author Organization [employer] [facility] Address [address] [place] [address] Care Team Providers Care Concrete Batcher Name Role Phone Unavailable Primary Care Provider Unavailabl e Encounter Details Date Type Department Care Team (Latest Contact Info) Description 05/09/1998 Outpatient Historical HIS OBSERVATION BED Jose Burk MD NO ADDRESS ON FILE Threatened premature labor, antepartum(644.03) (Primary Dx) Social History Tobacco Use Types Packs/Day Years Used Date Smoking Tobacco: Never Assessed Comments Unknown Sex and Gender Information Value Date Recorded Sex Assigned at Not on file Legal Sex Female 3:02 AM FICTION AND NONFICTION PROSE WRITER Gender Identity Not on file Sexual Orientation Not on file documented as of this encounter Plan of Treatment Not on file documented as of this encounter Visit Diagnoses Diagnosis Threatened premature labor, antepartum(644.03)- Primary Threatened premature labor, antepartum documented in this encounter
--- OUTSIDE RECORDS SUMMARY | 2024-07-05 08:18 | XMS_ITS | Encounter Summary ---
Author Organization [employer] Address [address] [place] [address] Care Team Providers Care Sizing End Bander Name Role Phone Unavailable Primary Care Provider Unavailabl e Encounter Details Date Type Department Care Team (Latest Contact Info) Description 06/21/1998 Inpatient Historical HIS PATIENT IN A BED Jose Burk MD NO ADDRESS ON FILE Unspecified indication for care or intervention related to labor and delivery, delivered (Primary Dx) Social History Tobacco Use Types Packs/Day Years Used Date Smoking Tobacco: Never Assessed Comments Unknown Sex and Gender Information Value Date Recorded Sex Assigned at Not on file Legal Sex Female 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
--- OUTSIDE RECORDS SUMMARY | 2024-07-05 08:18 | XMS_ITS | Clinical Summary ---
Author Organization [facility] Address [address], [address] [place] [address] Phone Care Team Providers Care Audio Visual Arts Director Name Role Phone Jeffrey Szymanski MD Primary Care Provider [phone] George Viramontes MD Unavailable [phone] Allergies Active Allergy Reactions Criticality Noted Date Comments Penicillins Hives Medium 06/14/2020 Medications levothyroxine (SYNTHROID) 88 MCG Tablet 06/05/2023 Active methylphenidate (RITALIN) 20 MG Tablet 06/06/2022 Active escitalopram (LEXAPRO) 20 MG Tablet 05/03/2022 Active valACYclovir (VALTREX) 1 GM Tablet 06/04/2022 Active MULTIPLE VITAMINS-MINERA LS PO Take by mouth. Active other by Other route. Hair [place] Active other by Other route. Collagen Peptide Active Active Problems No known active problems Family History Medical History Relation Name Comments Congestive Heart Failure Father Ovarian Cancer Mother Relation Name Status Comments Brother 1 Alive Brother 2 Alive Brother 3 Alive Child 1 Alive Child 2 Alive Child 3 Alive Father Mother Social History Tobacco Use Types Packs/Day Years Used Date Smoking Tobacco: Never Smokeless Tobacco: Never Tobacco Cessation:Counseling Given: Not Answered Alcohol Use Standard Drinks/Week Comments Yes 4 (1 standard drink = 0.6 oz pur e alcohol) per weekend Comments Unknown Sex and Gender Information Value Date Recorded Sex Assigned at Not on file Legal Sex Female 10:02 AM CDT Gender Identity Female 09/12/2023 9:09 AM CDT Sexual Orientation Not on file Last Filed Vital Signs Vital Sign Reading Time Taken Comments Blood Pressure 124/78 09/19/2023 9:25 AM CDT Pulse 68 09/19/2023 9:25 AM CDT Temperature 36.4 ??C (97.5 ??F) 09/19/2023 9:25 AM CD T Respiratory Rate 18 09/19/2023 9:25 AM CDT Oxygen Saturation 98% 09/19/2023 9:25 AM CDT Inhaled Oxygen Concentration - - Weight 51.7 kg (114 lb) 09/19/2023 9:25 AM CDT Height 160 cm (5' 3 ) 09/19/2023 9:25 AM CDT Body Mass Index 20.19 09/19/2023 9:25 AM CDT Plan of Treatment Health Maintenance Due Date Last Done Comments Hepatitis C Virus (HCV) Screening 1964 Hepatitis B Immunization (1 of 3 - 19+ 3-dose series) 1983 Pap Smear 1985 Cervical Cancer Screening (CCS) 1994 HPV/Cotest 1994 Cologuard 2014 Immunochemical Fecal Occult Blood 2014 Mammogram 2014 Pneumococcal Immunization (50+ years) (1 of 1 - PCV) 2014 Zoster Immunization (1 of 2) 2014 Influenza Immunization (#1) 02/08/202403/09, 03/19/2023, 03/29/2021, Additional history exists SARS-COV-2 Immunization ( season) 2024 03/19/2023, 01/01/2022, 03/29/2021, Additional history exists Colonoscopy 04/09/2033 04/09/2023, 02/12/2022 Colorectal Cancer Screening 04/09/2033 Respiratory Syncytial Virus (RSV) Immunization (Adult) (1 - 1-dose 75+ series) 2039 04/09/2023, 02/12/2022 DTaP/Tdap/Td Immunization Discontinued 05/12/2019 TdaP Immunization Completed 05/12/2019 Meningococcal Immunization (ACWY) Aged Out No longer eligible based on patient's age to complete this topic Pneumococcal Immunization Combined Aged Out No longer eligible based on patient's age to complete this topic Rotavirus Immunization Aged Out No lo nger eligible based on patient's age to complete this topic Insurance [facility] Care Teams Audio Visual Arts Director Relationship Specialty Start Date End Date Jeffrey Szymanski MD [address] [place] [address] PCP - General Family Medicine 08/29/23 George Viramontes MD [address] [place] [id number] Consulting Physician Oncology 08/29/23
--- OUTSIDE RECORDS SUMMARY | 2024-07-05 08:18 | XMS_ITS | Referral Summary ---
Author Organization [facility] Address [address] [place] [address] Care Team Providers Care Blockmason Name Role Phone Jeffrey Szymanski MD Primary Care Provider [phone] Allergies Active Allergy Reactions Criticality Noted Date Comments Penicillins Hives Medium 06/14/2020 Medications escitalopram (LEXAPRO) 20 mg tablet 05/03/2022 Active levothyroxine (SYNTHROID) 75 mcg tablet 03/21/2022 Active methylphenidate HCl (RITALIN) 20 mg tablet 06/06/2022 Active valACYclovir (VALTREX) 1 gram tablet 06/04/2022 Active Active Problems No known active problems Social History Tobacco Use Types Packs/Day Years Used Date Smoking Tobacco: Never Tobacco Cessation:Counseling Given: Not Answered Comments Unknown Sex and Gender Information Value Date Recorded Sex Assigned at Not on file Legal Sex Female 11:05 AM 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 INTERN Gender Identity Not on file Sexual Orientation Not on file 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 Not on file Not on file Last Filed Vital Signs Vital Sign Reading Time Taken Comments Blood Pressure 144/88 03/21/2016 11:40 AM CDT Pulse 65 03/21/2016 11:40 AM CDT Temperature - - Respiratory Rate - - Oxygen Saturation - - Inhaled Oxygen Concentration - - Weight 52.2 kg (115 lb) 07/25/2022 9:40 AM MARKET RESEARCH INTERN Height 162.6 cm (5' 4 ) 07/25/2022 9:40 AM MARKET RESEARCH INTERN Body Mass Index 19.74 07/25/2022 9:40 AM MARKET RESEARCH INTERN Plan of Treatment Not on file Insurance [facility] Care Teams Blockmason Relationship Specialty Start Date End Date Jeffrey Szymanski MD [address] [place] [address] PCP - General Internal Medicine 08/30/22
--- OUTSIDE RECORDS SUMMARY | 2024-07-05 08:18 | XMS_ITS | Clinical Summary ---
Author Organization [employer] [facility] Address [address] 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
--- OUTSIDE RECORDS SUMMARY | 2024-07-05 08:18 | XMS_ITS | Encounter Summary ---
Author Organization [employer] Address 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
--- OUTSIDE RECORDS SUMMARY | 2024-07-05 08:18 | XMS_ITS | Clinical Summary ---
Author Organization [facility] [place] Address [address] [place] [address] Care Team Providers Care Seconds Handler Name Role Phone Jeffrey Szymanski MD Primary Care Provider [phone] Allergies Active Allergy Reactions Criticality Noted Date Comments Penicillins Hives Medium 06/14/2020 Medications escitalopram (LEXAPRO) 20 mg tablet 05/03/2022 Active levothyroxine (SYNTHROID) 75 mcg tablet 03/21/2022 Active methylphenidate HCl (RITALIN) 20 mg tablet 06/06/2022 Active valACYclovir (VALTREX) 1 gram tablet 06/04/2022 Active Active Problems No known active problems Surgical History Surgery Date Site/Laterality Comments BREAST SURGERY 06/09/2003 - 07/09/2003 augmentation Medical History Medical History Date Comments Hx Other Medical [place] Augmen tation 06/2003 ADHD (attention deficit hyperactivity disorder) Thyroid disease Depression Family History Medical History Relation Name Comments Cancer Father Heart disease Father Arthritis Mother Cancer Mother Relation Name Status Comments Father Mother Other 1 Other 2 Other 3 Other 4 Social History Tobacco Use Types Packs/Day Years Used Date Smoking Tobacco: Never Tobacco Cessation:Counseling Given: Not Answered Comments Unknown Sex and Gender Information Value Date Recorded Sex Assigned at Not on file Legal Sex Female 11:05 AM SENIOR ECONOMIST Gender Identity Not on file Sexual Orientation Not on file 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 Not on file Not on file Obstetrics History Last Filed Vital Signs Vital Sign Reading Time Taken Comments Blood Pressure 144/88 03/21/2016 11:40 AM CDT Pulse 65 03/21/2016 11:40 AM CDT Temperature - - Respiratory Rate - - Oxygen Saturation - - Inhaled Oxygen Concentration - - Weight 52.2 kg (115 lb) 07/25/2022 9:40 AM SENIOR ECONOMIST Height 162.6 cm (5' 4 ) 07/25/2022 9:40 AM SENIOR ECONOMIST Body Mass Index 19.74 07/25/2022 9:40 AM SENIOR ECONOMIST Plan of Treatment Health Maintenance Due Date Last Done Comments Breast Cancer Screening-Mammogram 1964 Cervical Cancer Screening 1964 Colon Cancer Screening-Colonoscopy 1964 Depression Screening 1964 Hepatitis C Screening 1964 Hepatitis B Screening 1982 Regular Well Visit/Exam 18-64 1982 Zoster Vaccine (1 of 2) 2014 Covid-19 Vaccine ( season) 2024 01/01/2022, 01/01/2022, 03/29/2021, Additional history exists Influenza Vaccine (#1) 2024 , 02/29/2020, 02/29/2020, Additional history exists DTaP/Tdap/Td Vaccine (2 - Td or Tdap) 05/12/2029 05/12/2019 Pneumococcal vaccine <65 Aged Out No longer eligible based on patient's age to complete this topic Insurance [facility] CLAIMS [facility] CLAIM[facility] Care Teams Seconds Handler Relationship Specialty Start Date End Date Jeffrey Szymanski MD [address] [place] [address] PCP - General Internal Medicine 08/30/22
--- OUTSIDE RECORDS SUMMARY | 2024-07-05 08:18 | XMS_ITS | Encounter Summary ---
Author Organization [facility] Address 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
--- OUTSIDE RECORDS SUMMARY | 2024-07-05 08:18 | XMS_ITS | Encounter Summary ---
Author Organization [facility] Address [address] [place] [address] Care Team Providers Care Eyedotter Name Role Phone Unavailable Primary Care Provider Unavailabl e Encounter Details Date Type Department Care Team (Latest Contact Info) Description 08/11/1999 Outpatient Historical [facility] Burk, Jose Oreilly MD NO ADDRESS ON FILE Unspecified ovarian dysfunction (Primary Dx) Social History Tobacco Use Types Packs/Day Years Used Date Smoking Tobacco: Never Assessed Comments Unknown Sex and Gender Information Value Date Recorded Sex Assigned at Not on file Legal Sex Female 3:02 AM CARE TRANSITION MANAGER Gender Identity Not on file Sexual Orientation Not on file documented as of this encounter Plan of Treatment Not on file documented as of this encounter Visit Diagnoses Diagnosis Unspecified ovarian dysfunction- Primary documented in this encounter
--- OUTSIDE RECORDS SUMMARY | 2024-07-05 08:18 | XMS_ITS | Data Portability ---
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 Patient will come back in a year unless there are new symptoms. [email or web address] Not available 04/10/2022 14:04:09 04/23/2023 04/23/2023 Annual gynecological exam performed. Patient will come back in a year unless there are new symptoms. [email or web address] Not available 04/23/2023 15:23:40 05/24/2024 05/24/2024 Annual gynecological exam performed. Patient will come back in a year unless there are new symptoms. [email or web address] Not available 05/24/2024 12:16:57 Plan of Treatment Reminders Order Date Submit Date Provider Last Modified By Organization Details Last Modified Time Details Appointments None recorded. Lab urinalysis, dipstick 2021 022 [email or web address] [facility], [address], [place], [address], 16:05:18 urinalysis, dipstick 2021 022 [email or web address] [address], [place], [address], 11/02/202 2 15:09:23 genetic disease analysis, blood or tissue 2023 024 [email or web address], [address], [place], [address], 4 13:54:16 Referral None recorded. Procedures None recorded. Surgeries None recorded. Imaging MAMMO, screening, bilateral 2021 022 [email or web address] [facility], [address], [place], [address], 2 11:45:30 DEXA, axial skeleton + vertebral fracture assessment 2023 024 [facility], [address], [place], [address], 4 04:10:29 MAMMO, screening, digital, bilateral 2023 024 [email or web address] [facility], [address], [place], [address], 4 14:45:18 Medication Orders Macrobid 100 mg capsule 2021 022 [email or web address] [id number], [address] [facility], [place], [place], [id number], 2 11:46:28 Pyridium 100 mg tablet 2021 022 [email or web address] [id number], [address], [place], [place], [id number], 2 11:46:33 Patient TargetsNo targets recorded. Patient InstructionsNo instructions recorded. Reason for Referral None Reported. Results Created Date Observation Date Name Description Value Unit Range Abnormal Flag Note LastModifiedBy Organization Detail LastModifiedTime 07/25/19 22 07/25/2021 URINA LYSIS , WITH MICRO SCOPI C color, urine Straw colorl ess, light yellow , yellow , dark yellow , straw Not Available [facility] (Lab) [address], [place], [address], 07/27/2021 02:20:01 07/25/19 22 07/25/2021 URINA LYSIS , WITH MICRO SCOPI C clarity, urine Clear Not Available [facility] (Lab) [address] [facility], [place], [address], 07/27/2021 02:20:01 07/25/19 22 07/25/2021 URINA LYSIS , WITH MICRO SCOPI C glucose, urine Negati ve mg/dL negati ve Not Available [facility] (Lab) [address] [facility], [place], [address], 07/27/2021 02:20:01 07/25/19 22 07/25/2021 URINA LYSIS , WITH MICRO SCOPI C bilirubin, urine Negati ve mg/dL negati ve Not Available [facility] (Lab) [address] [facility] [facility], [place], [address], 07/27/2021 02:20:01 07/25/19 22 07/25/2021 URINA LYSIS , WITH MICRO SCOPI C ketones, urine Negati ve mg/dL negati ve Not Available [facility] (Lab) [address] [facility], [place], [address], 07/27/2021 02:20:01 07/25/19 22 07/25/2021 URINA LYSIS , WITH MICRO SCOPI C pH, urine 6.0 . 5.0-9. 0 Not Available [facility] (Lab) [address] [facility], [place], [address], 07/27/2021 02:20:01 07/25/19 22 07/25/2021 URINA LYSIS , WITH MICRO SCOPI C specific gravity, urine 1.006 . 1.001- 1.035 Not Available [facility] (Lab) [address] [facility] [facility], [place], [address], 07/27/2021 02:20:01 07/25/19 22 07/25/2021 URINA LYSIS , WITH MICRO SCOPI C blood, urine Negati ve negati ve Not Available [facility] (Lab) [address] [facility] [facility] [facility], [place], [address], 07/27/2021 02:20:01 07/25/19 22 07/25/2021 URINA LYSIS , WITH MICRO SCOPI C protein, UA Negati ve mg/dL negati ve Not Available [facility] (Lab) [address] [facility] [facility], [place], [address], 07/27/2021 02:20:01 07/25/19 22 07/25/2021 URINA LYSIS , WITH MICRO SCOPI C urobilinogen , urine <2.0 mg/dL <2.0 Not Available [facility] (Lab) [address], [place], [address], 07/27/2021 02:20:01 07/25/19 22 07/25/2021 URINA LYSIS , WITH MICRO SCOPI C nitrite, urine Negati ve negati ve Not Available [facility] (Lab) [address] [facility], [place], [address], 07/27/2021 02:20:01 07/25/19 22 07/25/2021 URINA LYSIS , WITH MICRO SCOPI C leukocyte esterase, urine Modera te andria/u L negati ve abnormal Not Available [facility] (Lab) [address] [facility], [place], [address], 07/27/2021 02:20:01 07/25/19 22 07/25/2021 URINA LYSIS , WITH MICRO SCOPI C WBC, urine 10-14 /hpf none, 0-5 abnormal Not Available [facility] (Lab) [address] [facility], [place], [address], 07/27/2021 02:20:01 07/25/19 22 07/25/2021 URINA LYSIS , WITH MICRO SCOPI C RBC, urine 0-2 /hpf none, 0-2 Not Available [facility] (Lab) [address] [facility], [place], [address], 07/27/2021 02:20:01 07/25/19 22 07/25/2021 URINA LYSIS , WITH MICRO SCOPI C bacteria, urine Trace /hpf none abnormal Not Available [facility] (Lab) [address] [facility], [place], [address], 07/27/2021 02:20:01 07/25/19 22 07/25/2021 URINA LYSIS , WITH MICRO SCOPI C squamous epithelial cells, urine Modera te /hpf none abnormal Not Available [facility] (Lab) [address] [facility], [place], [address], 07/27/2021 02:20:01 07/25/19 22 07/25/2021 URINA LYSIS , WITH MICRO SCOPI C mucus, urine Few /hpf none, trace, few Not Available [facility] (Lab) [address] [facility], [place], [address], 07/27/2021 02:20:01 07/25/19 22 07/25/2021 CULTU RE: URINE result report SEE RESULT S BELOW abnormal Test: Cultu re: Urine Speci men Sourc e: Urine - Clean Catch Speci men Type: Urine Speci men Date: 2021 5:03 PM Resul t Date: 2021 1:17 AM Resul t Statu s: Final resul t Abnor mal: Yes Yung martines Lab: [facility] [address] [facility] [address] Tel: CULTU RE ----- ----- ----- --- 25,00 0-50, 000 CFU/m l Strep tococ cus agala ctiae (Grou p B) (Abno rmal) Not Available [facility] (Lab) [address], [place], [address], 07/27/2021 02:20:12 07/25/19 22 07/25/2021 urina lysis , dipst ick Leukocytes + Not Available [facility] [address], [place], [address], 07/25/2021 15:58:55 07/25/19 22 07/25/2021 urina lysis , dipst ick Nitrite neg Not Available [facility] [address], [place], [address], 07/25/2021 15:58:55 07/25/19 22 07/25/2021 urina lysis , dipst ick Urobilinogen neg Not Available [facility] [address], [place], [address], 07/25/2021 15:58:55 07/25/19 22 07/25/2021 urina lysis , dipst ick Protein neg Not Available [facility] [address], [place], [address], 07/25/2021 15:58:55 07/25/19 22 07/25/2021 urina lysis , dipst ick pH 5 Not Available [facility] [address], [place], [address], 07/25/2021 15:58:55 07/25/19 22 07/25/2021 urina lysis , dipst ick Blood trace Not Available [facility] [address], [place], [address], 07/25/2021 15:58:55 07/25/19 22 07/25/2021 urina lysis , dipst ick Specific [place] 1.005 [facility] Available [facility] [address], [place], [address], 07/25/2021 15:58:55 07/25/19 22 07/25/2021 urina lysis , dipst ick Ketone neg Not Available [facility] [address], [place], [address], 07/25/2021 15:58:55 07/25/19 22 07/25/2021 urina lysis , dipst ick Bilirubin neg Not Available [facility] [address], [place], [address], 07/25/2021 15:58:55 07/25/19 22 07/25/2021 urina lysis , dipst ick Glucose neg Not Available [facility] [address], [place], [address], 07/25/2021 15:58:55 07/25/19 22 07/25/2021 urina lysis , dipst ick Appearance clear Not Available [facility] [address], [place], [address], 07/25/2021 15:58:55 07/25/19 22 07/25/2021 urina lysis , dipst ick Color straw Not Available [facility] [address], [place], [address], 07/25/2021 15:58:55 12/04/19 22 12/03/2021 CBC W/DIF F WBC 5.7 10'3/ uL 3.6-10 .2 Not Available [facility] (Lab) [address], [place], [address], 12/04/2021 05:28:24 12/04/19 22 12/03/2021 CBC W/DIF F RBC 3.60 10'6/ uL (based on docume nted legal sex) 4.10-5 .30 low Not Available [facility] (Lab) [address], [place], [address], 12/04/2021 05:28:24 12/04/19 22 12/03/2021 CBC W/DIF F HGB 12.1 g/dL (based on docume nted legal sex) 11.9-1 5.8 Not Available [facility] (Lab) [address], [place], [address], 12/04/2021 05:28:24 12/04/19 22 12/03/2021 CBC W/DIF F HCT 38.1 % (based on docume nted legal sex) 37.4-4 8.3 Not Available [facility] (Lab) [address] [facility], [place], [address], 12/04/2021 05:28:24 12/04/19 22 12/03/2021 CBC W/DIF F MCV 107.0 fL 82.0-9 9.0 high Not Available [facility] (Lab) [address], [place], [address], 12/04/2021 05:28:24 12/04/19 22 12/03/2021 CBC W/DIF F MCH 34.0 pg 27.0-3 3.0 high Not Available [facility] (Lab) [address], [place], [address], 12/04/2021 05:28:24 12/04/19 22 12/03/2021 CBC W/DIF F MCHC 32.0 g/dL 32.0-3 6.0 Not Available [facility] (Lab) [address] [facility] [facility] [facility], [place], [address], 12/04/2021 05:28:24 12/04/19 22 12/03/2021 CBC W/DIF F RDW 13.0 % 11.0-1 5.0 Not Available [facility] (Lab) [address] [facility] [facility], [place], [address], 12/04/2021 05:28:24 12/04/19 22 12/03/2021 CBC W/DIF F plt 260 10'3/ uL 150-45 0 Not Available [facility] (Lab) [address], [place], [address], 12/04/2021 05:28:24 12/04/19 22 12/03/2021 CBC W/DIF F MPV 9.2 fL 9.8-12 .7 low Not Available [facility] (Lab) [address] [facility] [facility], [place], [address], 12/04/2021 05:28:24 12/04/19 22 12/03/2021 CBC W/DIF F NRBC's 0.00 % 0 Not Available [facility] (Lab) [address] [facility] [facility], [place], [address], 12/04/2021 05:28:24 12/04/19 22 12/03/2021 CBC W/DIF F absolute NRBCs 0.0 10'3/ uL 0 Not Available [facility] (Lab) [address] [facility], [place], [address], 12/04/2021 05:28:24 12/04/19 22 12/03/2021 CBC W/DIF F neutrophils 66.0 % 37.0-7 2.0 Not Available [facility] (Lab) [address] [facility], [place], [address], 12/04/2021 05:28:24 12/04/19 22 12/03/2021 CBC W/DIF F lymphocytes 25.0 % 16.0-4 8.0 Not Available [facility] (Lab) [address] [facility] [facility], [place], [address], 12/04/2021 05:28:24 12/04/19 22 12/03/2021 CBC W/DIF F monocytes 7.0 % 4.0-14 .0 Not Available [facility] (Lab) [address] [facility], [place], [address], 12/04/2021 05:28:24 12/04/19 22 12/03/2021 CBC W/DIF F eosinophils 1.0 % 0.0-9. 0 Not Available [facility] (Lab) [address] [place], [address], 12/04/2021 05:28:24 12/04/19 22 12/03/2021 CBC W/DIF F basophils 1.0 % 0.0-2. 0 Not Available [facility] (Lab) [address] [facility] [facility], [place], [address], 12/04/2021 05:28:24 12/04/19 22 12/03/2021 CBC W/DIF F immature granulocytes 0.0 % no define d refere nce range Not Available [facility] (Lab) [address] [facility], [place], [address], 12/04/2021 05:28:24 12/04/19 22 12/03/2021 CBC W/DIF F absolute neutrophils 3.8 10'3/ uL 1.1-6. 0 Not Available [facility] (Lab) [address] [facility] [facility], [place], [address], 12/04/2021 05:28:24 12/04/19 22 12/03/2021 CBC W/DIF F absolute lymphocytes 1.4 10'3/ uL 0.7-3. 4 Not Available [facility] (Lab) [address] [facility], [place], [address], 12/04/2021 05:28:24 12/04/19 22 12/03/2021 CBC W/DIF F absolute monocytes 0.4 10'3/ uL 0.3-1. 0 Not Available [facility] (Lab) [address] [place], [address], 12/04/2021 05:28:24 12/04/19 22 12/03/2021 CBC W/DIF F absolute eosinophils 0.0 10'3/ uL 0.0-0. 6 Not Available [facility] (Lab) [address] [place], [address], 12/04/2021 05:28:24 12/04/19 22 12/03/2021 CBC W/DIF F absolute basophils 0.1 10'3/ uL 0.0-0. 1 Not Available [facility] (Lab) [address] [place], [address], 12/04/2021 05:28:24 12/04/19 22 12/03/2021 CBC W/DIF F absolute immature granulocytes 0.00 10'3/ uL 0.00-0 .10 2021 3:49 AM: P indic ates parti al resul ts on a panel have been relea sed. Addit ional resul ts will follo w. 2021 3:49 AM: This resul t has been final verif ied. No addit ional or carbone ed resul ts are expec tayo. Not Available [facility] (Lab) [address] [facility] [facility], [place], [address], 12/04/2021 05:28:24 12/04/19 22 12/03/2021 PHOSP HORUS phosphorus 3.2 mg/dL 2.5-5. 0 Not Available [facility] (Lab) [address] [facility], [place], [address], 12/04/2021 05:28:25 12/04/19 22 12/03/2021 CMP(C OMPRE HENSI VE METAB OLIC PANEL ) sodium 138 mmol/ L 133-14 6 Not Available [facility] (Lab) [address] [place], [address], 12/04/2021 05:28:26 12/04/19 22 12/03/2021 CMP(C OMPRE HENSI VE METAB OLIC PANEL ) potassium 4.2 mmol/ L 3.5-5. 1 Not Available [facility] (Lab) [address] [place], [address], 12/04/2021 05:28:26 12/04/19 22 12/03/2021 CMP(C OMPRE HENSI VE METAB OLIC PANEL ) chloride 101 mmol/ L 98-107 Not Available [facility] (Lab) [address] [place], [address], 12/04/2021 05:28:26 12/04/19 22 12/03/2021 CMP(C OMPRE HENSI VE METAB OLIC PANEL ) carbon dioxide 30 mmol/ L 21-31 Not Available [facility] (Lab) [address] [facility], [place], [address], 12/04/2021 05:28:26 12/04/19 22 12/03/2021 CMP(C OMPRE HENSI VE METAB OLIC PANEL ) anion gap 7 mmol/ L 4-13 Not Available [facility] (Lab) [address] [facility] [facility], [place], [address], 12/04/2021 05:28:26 12/04/19 22 12/03/2021 CMP(C OMPRE HENSI VE METAB OLIC PANEL ) blood urea nitrogen 25 mg/dL 7-25 Not Available [facility] (Lab) [address], [place], [address], 12/04/2021 05:28:26 12/04/19 22 12/03/2021 CMP(C OMPRE HENSI VE METAB OLIC PANEL ) creatinine 0.80 mg/dL 0.60-1 .30 Not Available [facility] (Lab) [address] [facility] [facility], [place], [address], 12/04/2021 05:28:26 12/04/19 22 12/03/2021 CMP(C OMPRE HENSI VE METAB OLIC PANEL ) egfrcr (CKD-epi 2020) 86 mL/mi n/1.7 3_m2 >=60 Not Available [facility] (Lab) [address] [facility] [facility], [place], [address], 12/04/2021 05:28:26 12/04/19 22 12/03/2021 CMP(C OMPRE HENSI VE METAB OLIC PANEL ) calcium 11.1 mg/dL 8.3-10 .5 high Not Available [facility] (Lab) [address] [place], [address], 12/04/2021 05:28:26 12/04/19 22 12/03/2021 CMP(C OMPRE HENSI VE METAB OLIC PANEL ) glucose 75 mg/dL 70-100 Not Available [facility] (Lab) [address] [facility] [facility], [place], [address], 12/04/2021 05:28:26 12/04/19 22 12/03/2021 CMP(C OMPRE HENSI VE METAB OLIC PANEL ) protein, total 6.3 g/dL 6.4-8. 3 low Not Available [facility] (Lab) [address] [facility] [facility], [place], [address], 12/04/2021 05:28:26 12/04/19 22 12/03/2021 CMP(C OMPRE HENSI VE METAB OLIC PANEL ) albumin 4.6 g/dL 3.5-5. 0 Not Available [facility] (Lab) [address] [facility], [place], [address], 12/04/2021 05:28:26 12/04/19 22 12/03/2021 CMP(C OMPRE HENSI VE METAB OLIC PANEL ) ALT 32 units /L 9-43 Not Available [facility] (Lab) [address] [facility] [facility], [place], [address], 12/04/2021 05:28:26 12/04/19 22 12/03/2021 CMP(C OMPRE HENSI VE METAB OLIC PANEL ) alkaline phosphatase 51 units /L 34-104 Not Available [facility] (Lab) [address] [place], [address], 12/04/2021 05:28:26 12/04/19 22 12/03/2021 CMP(C OMPRE HENSI VE METAB OLIC PANEL ) AST 29 units /L 13-39 Not Available [facility] (Lab) [address] [place], [address], 12/04/2021 05:28:26 12/04/19 22 12/03/2021 CMP(C OMPRE HENSI VE METAB OLIC PANEL ) bilirubin, total 0.7 mg/dL 0.2-1. 2 Not Available [facility] (Lab) [address] [place] [facility], [address], 12/04/2021 05:28:26 12/04/19 22 12/03/2021 TSH, REFLE X FREE T4 TSH 1.13 uIU/m L 0.30-5 .33 Not Available [facility] (Lab) [address] [facility] [facility], [place], [address], 12/04/2021 05:28:27 12/04/19 22 12/03/2021 VITAM IN D, 25-OH (TOTA L D2/D3 ) vitamin D, 25-hydroxy, total 58.0 NG/mL 30.0-1 00.0 R-The refer ence range for this test has been updat ed. Sugge stive of Defic iency : <20 ng/mL Sugge stive of Insuf ficie ncy: 20-29 ng/mL Sugge stive of Suffi cienc y: 30-10 0 ng/mL Sugge stive of Toxic ity: >150 ng/mL Not Available [facility] (Lab) [address] [facility] [facility], [place], [address], 12/04/2021 05:28:28 04/10/20 22 04/10/2022 IMAGE GUIDE D PAP AND HPV REGAR DLESS image guided Pap, HPV regardless of Pap result SEE RESULT S BELOW CASE REPOR T: Cytol ogy Gynec ologi jeffery Repor t Case: [id number] Autho johanna g Provi aliya: Trenton Rivera Colle cted: 04/10 1657 GREASE MAN Order ing Locat ion: [place] [facility] Recei maria elena: 04/11 0139 First Scree n: Strut z, Willi am, CT Speci men: Scree leo Pap - Image d, Cervi x STATE MENT OF ADEQU ACY: Satis facto ry for evalu ation Trans forma tion zone compo nent canno t be defin itive ly ident ified due to the prese nce of atrop hy or other hormo nal carbone es FINAL DIAGN OSIS: Negat yandy for Intra epith elial Lesio n or Nikita link (NIL) . Atrop hic cell juan alberto canela. Elect lay avelar lorena d by Angus Calix am, CT on 2021 at 10:16 AM ----- ----- ----- ----- ----- ----- ----- ----- ----- ----- ----- ----- ----- ----- ----- ----- ----- ---- HPV RESUL TS: HPV mRNA E6/E7 : No HPV mRNA Detec tayo NOTE: This high risk HPV mRNA assay detec ts fourt een high- risk HPV types (16, 18, 31, 33, 35, 39, 45, 51, 52, 56, 58, 59, 66, 68) witho ut diffe renti ation . COMME NT: Note: This speci men was revie wed by a Cytot echno logis t and/o r Patho logis t (as indic ated in this repor t) after evalu ation using the Thinp rep Imagi ng Syste m. CLINI JEFFERY INFOR MATIO N: Menst rual Statu s: LMP (if appli cable ): Clini jeffery Histo ry/Pr eviou s Pap: Type of Neopl gurjit (if appli cable ): Signi fican t Clini jeffery Findi ngs: Other Histo ry: Hormo zoë (if appli cable ): PAP EDUCA JOSY L NOTE: The Pap Test is a scree leo test with an inher ent false negat yandy rate. Liqui d-bas ed sampl ing may decre ase, but will not elimi katie, false negat yandy resul ts. A negat yandy resul t does not precl ude the prese nce and/o r devel opmen t of disea se, since the prese nce of abnor mal cells in the sampl e depen ds on the locat ion of the lesio n and sampl ing techn ique. Leoncio nued regul ar scree leo is the best metho d of cance r preve ntion . If repor tayo cytol ogic findi ng do not corre late with physi jeffery and/o r histo rical findi ngs, furth er inves tigat ion is recom pablito d, as clini kostas de leon nted. Not Available [facility] (Lab) [address], [place], [address], 04/15/2022 11:19:16 04/10/20 22 04/10/2022 urina lysis , dipst ick Leukocytes neg Not Available [facility] eric [address], [place], [address], 04/10/2022 15:08:47 04/10/20 22 04/10/2022 urina lysis , dipst ick Nitrite neg Not Available [facility] [address], [place], [address], 04/10/2022 15:08:47 04/10/20 22 04/10/2022 urina lysis , dipst ick Urobilinogen neg Not Available [facility] diaz [address], [place], [address], 04/10/2022 15:08:47 04/10/20 22 04/10/2022 urina lysis , dipst ick Protein neg Not Available [facility] [address], [place], [address], 04/10/2022 15:08:47 04/10/20 22 04/10/2022 urina lysis , dipst ick pH 5 Not Available [facility] [address], [place], [address], 04/10/2022 15:08:47 04/10/20 22 04/10/2022 urina lysis , dipst ick Specific [place] 1.010 [facility] Available [facility] [address], [place], [address], 04/10/2022 15:08:47 04/10/20 22 04/10/2022 urina lysis , dipst ick Ketone neg Not Available [facility] [address], [place], [address], 04/10/2022 15:08:47 04/10/20 22 04/10/2022 urina lysis , dipst ick Bilirubin neg Not Available [facility] [address], [place], [address], 04/10/2022 15:08:47 04/10/20 22 04/10/2022 urina lysis , dipst ick Glucose neg Not Available [facility] [address], [place], [address], 04/10/2022 15:08:47 04/10/20 22 04/10/2022 urina lysis , dipst ick Appearance clear Not Available [facility] [address], [place], [address], 04/10/2022 15:08:47 04/10/20 22 04/10/2022 urina lysis , dipst ick Color straw Not Available [facility] [address], [place], [address], 04/10/2022 15:08:47 04/23/20 23 04/23/2023 IMAGE GUIDE D PAP AND HPV REGAR DLESS image guided Pap, HPV regardless of Pap result SEE RESULT S BELOW CASE REPOR T: Cytol ogy Gynec ologi jeffery Repor t Case: [id number] Autho johanna g Provi aliya: Trenton Rivera Colle cted: 04/23 1704 GREASE MAN Order ing Locat ion: [place] [facility] Recei maria elena: 04/24 0740 First Scree n: Nacha portia ak, Carolyn ay, CT Speci men: Scree leo Pap - Image d, Cervi x STATE MENT OF ADEQU ACY: Satis facto ry for evalu ation Trans forma tion zone compo nent prese nt FINAL DIAGN OSIS: Negat yandy for Intra epith elial Lesio n or Nikita link (NIL) . Atrop hy prese nt. Elect lay marcioalice lorena d by Vance willett, Carolyn abarca, CT on 04/25 at 3:42 PM ----- ----- ----- ----- ----- ----- ----- ----- ----- ----- ----- ----- ----- ----- ----- ----- ----- ---- HPV RESUL TS: HPV mRNA E6/E7 : No HPV mRNA Detec tayo NOTE: This high risk HPV mRNA assay detec ts fourt een high- risk HPV types (16, 18, 31, 33, 35, 39, 45, 51, 52, 56, 58, 59, 66, 68) witho ut diffe renti ation . COMME NT: This speci men was revie wed by a Cytot echno logis t and/o r Patho logis t (as indic ated in this repor t) after evalu ation using the Thinp rep Imagi ng Syste m. CLINI JEFFERY INFOR MATIO N: Menst rual Statu s: LMP (if appli cable ): Clini jeffery Histo ry/Pr eviou s Pap: Type of Neopl gurjit (if appli cable ): Signi fican t Clini jeffery Findi ngs: Other Histo ry: Hormo zoë (if appli cable ): PAP EDUCA JOSY L NOTE: The Pap Test is a scree leo test with an inher ent false negat yandy rate. Liqui d-bas ed sampl ing may decre ase, but will not elimi katie, false negat yandy resul ts. A negat yandy resul t does not precl ude the prese nce and/o r devel opmen t of disea se, since the prese nce of abnor mal cells in the sampl e depen ds on the locat ion of the lesio n and sampl ing techn ique. Leoncio nued regul ar scree leo is the best metho d of cance r preve ntion . If repor tayo cytol ogic findi ng do not corre late with physi jeffery and/o r histo rical findi ngs, furth er inves tigat ion is recom pablito d, as clini kostas de leon nted. Not Available [facility] (Lab) [address], [place], [address], 04/25/2023 16:46:42 05/24/20 24 05/24/2024 IMAGE GUIDE D PAP AND HPV REGAR DLESS image guided Pap, HPV regardless of Pap result SEE RESULT S BELOW CASE REPOR T: Cytol ogy Gynec ologi jeffery Repor t Case: [id number] Autho johanna adam Provi aliya: Terra Magana, KYLE Colle cted: 05/24 1640 Order ing Locat ion: [place] [facility] Recei maria elena: 05/25 0155 First Screrosario n: Negra Draper, CT Rescr een: Stefani Jameson, CT Speci men: Jose Ramon bailey Pap - Image d, Cervi x STATE MENT OF ADEQU ACY: Satis facto ry for evalu ation Trans forma tion zone compo pasha blanco nt ----- ----- ----- ----- ----- ----- ----- ----- ----- ----- ----- ----- ----- ----- ----- ----- ----- ---- FINAL DIAGN OSIS: Negat yandy for Intra epith elial Lesio n or Nikita link ([facility]) . 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 COMME NT: This speci men was revie wed by a Cytot echno logis t and/o r Patho logis t (as indic ated in this repor t) after evalu ation using the Thinp rep Imagi ng Syste m. CLINI JEFFERY INFOR MATIO N: Menst rual Statu s: LMP (if appli cable ): Clini jeffery Histo ry/Pr eviou s Pap: Type of Neopl gurjit (if appli cable ): Signi fican t Clini jeffery Findi ngs: Other Histo ry: Hormo zoë (if appli cable ): PAP EDUCA JOSY L NOTE: The Pap Test is a scree leo test with an inher ent false negat yandy rate. Liqui d-bas ed sampl ing may decre ase, but will not elimi katie, false negat yandy resul ts. A negat yandy resul t does not precl ude the prese nce and/o r devel opmen t of disea se, since the prese nce of abnor mal cells in the sampl e depen ds on the locat ion of the lesio n and sampl ing techn ique. Leoncio nued regul ar scree leo is the best metho d of cance r preve ntion . If repor tayo cytol ogic findi ng do not corre late with physi jeffery and/o r histo rical findi ngs, furth er inves tigat ion is recom pablito d, as clini kostas de leon nted. Not Available [facility] (Lab) [address], [place], [address], 06/03/2024 15:46:22 08/29/19 22 08/28/2021 MAMMO , scree leo, digit al, bilat eral No observ ation record ed. DEEJAY [facility] [address], [place], [address], 09/01/2021 11:35:23 11/07/19 22 DEXA No observ ation record ed. [email or web address] [facility] [address], [place], [address], 11/22/2021 14:19:32 Result Notes None recorded. Problems Name Problem SNOMED Code Status Onset Date Resolution Date Notes Provider Name and Address Organization Details Recorded Time Screenin g for malignan t neoplasm of rectum Completed 201703/26/2021 Encounte r for screenin g for malignan t neoplasm of rectum;P ractice ID: 0001 Yasmin levy, [facility] 14:57:54 Finding of pattern of menstrua l cycle 291928996 Completed 201803/26/2021 Excessiv e and frequent menstrua tion with irregula r cycle;Pr actice ID: 0001 Yasmin levy, [facility] 14:57:44 Pregnanc y test negative [id number] Completed 201803/26/2021 Encounte r for pregnanc y test, result negative ;Practic e ID: 0001 Yasmin levy [facility] 14:57:48 Uterine leiomyom a 98635661 Completed 201803/26/2021 Leiomyom a of uterus, unspecif ied;Prac carol[place] ID: [address] [facility] 14:58:11 Bleeding 172101952 Completed 201803/26/2021 Abnormal uterine and vaginal bleeding , unspecif ied;Prac carolina ID: 0001 Yasmin levy [facility] 14:57:46 Abnormal uterine bleeding 36375804317 100 Completed 201803/26/2021 Other specifie d abnormal uterine and vaginal bleeding ;Practic e ID: 0001 Yasmin levy [facility] 14:58:[address] Concept Completed 201803/26/2021 Encntr for general adult medical exam w/o abnormal findings ;Practic e ID: [address] [facility] 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 14:58:02 Hypertro phy of uterus 223828233 Completed 201803/26/2021 Hypertro phy of uterus;P ractice ID: 0001 Yasmin Ho [facility] 14:57:31 Pelvic and perineal pain 706052242 Completed 201803/26/2021 Pelvic and perineal pain;Pra ctice ID: 0001 Yasmin Ho [facility] 14:57:51 Speciali zed medical examinat ion Completed 201403/26/2021 Gynecolo gical Examinat ion;Irving rded Elsewher e: No Locat ion: [facility] S ource: EHR Hose Wrapper reid: N Practi ce ID: [id number] Bal lable Time: 09:30:00 AM Yasmin Ho [facility] 14:58:10 Abdomina l bloating 452748101 Completed 201403/26/2021 Bloating ;Recorde d Elsewher e: No Locat ion: [facility] S ource: EHR Hose Wrapper reid: N Practi ce ID: 0001 Bal lable Time: 08:45:00 AM Yasmin Ho null, [facility] 14:57:25 Dysfunct ional uterine bleeding Completed 201103/26/2021 Other disorder s of menstrua tion and other abnormal bleeding from female genital tract;Re corded Elsewher e: No Locat ion: [facility] S ource: EHR Hose Wrapper reid: N James ce ID: [id number] Bal lable Time: 10:00:00 AM Yasmin levy [facility] 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 14:58:00 Atypical glandula r cells on cervical Papanico laou smear [id number] Completed 201103/26/2021 Abnormal glandula r Papanico laou smear of cervix;R ecorded Elsewher e: No Locat ion: [facility] S ource: [facility] reid: Keya Ramirez ce ID: 0001 Bal lable Time: 10:00:00 AM Yasmin levy [facility] 14:58:06 Adult health examinat ion Completed 201403/26/2021 ROUTINE MEDICAL EXAM;Rec orded Elsewher e: No Locat ion: [facility] S ource: EHR Hose Wrapper reid: N Torriti ce ID: 0001 Bal lable Time: 09:30:00 AM Yasmin levy [facility] 14:57:49 Leukocyt osis 030549465 Completed 201403/26/2021 LEUKOCYT OSIS NOS;Irving rded Elsewher e: No Locat ion: [facility] S ource: EHR Hose Wrapper reid: N Torriti ce ID: 0001 Bal lable Time: 09:30:00 AM Yasmin levy [facility] 14:57:20 Screenin g for malignan t neoplasm of cervix Completed 201103/26/2021 Screenin g for malignan t neoplasm s of the cervix;R ecorded Elsewher e: No Locat ion: [facility] S ource: [facility] reid: N Torriti ce ID: 0001 Bal lable Time: 01:30:00 PM Yasmin levy [facility] 14:57:26 Blood leukocyt e number above referenc e range [id number] Completed 201503/26/2021 Elevated white blood cell count, unspecif ied;Irving rded Elsewher e: No Locat ion: [facility] S ource: EHR Hose Wrapper reid: N Torriti ce ID: 0001 Bal lable Time: 08:30:00 AM Yasmin levy [facility] 14:58:05 Finding of general energy 703077912 Completed 201403/26/2021 Fatigue; Recorded Elsewher e: No Locat ion: [facility] S ource: [facility] reid: N Torriti ce ID: 0001 Bal lable Time: 08:45:00 AM Yasmin levy [facility] 14:57:56 Hypothyr oidism 25442340 Completed 201403/26/2021 Hypothyr oidism, unspecif ied;Irving rded Elsewher e: No Locat ion: [facility] S ource: [facility] reid: N Torriti ce ID: 0001 Bal lable Time: 08:45:00 AM Yasmin levy [facility] 14:58:03 Screenin g for malignan t neoplasm of colon Completed 201003/26/2021 Special screenin g for malignan t neoplasm s, colon;Pr actice ID: 0001 Yasmin levy [facility] 14:57:52 History of herpes zoster 45137485862 9108 Active 2023 shingles Lidia levy, [facility] 4 12:19:53 Mixed anxiety and depressi ve disorder 118640488 Active 2023 Lidia levy [facility] 4 12:20:25 Problem Notes None recorded. Procedures Surgical History Date Name Laterality Status Provider Name and Address Organization Details Recorded Time 05/24/20 24 Date of Last Pap Smear completed Lidia Turner [facility] 05/24/2024 12:21:00 10/17/19 24 procedure on neck completed Lidia Turner [facility] 05/24/2024 12:24:33 04/09/20 23 Date of Last Colonoscopy completed Lidia Turner [facility] 05/24/2024 12:22:50 04/09/20 23 colonoscopy completed Maryana Allison [facility] [address], [place], [address], , [facility] 04/23/2023 15:36:47 04/09/20 23 Ligation of hemorrhoid(s) completed Lidia Turner [facility] 05/24/2024 12:23:44 08/29/19 22 Date of Last Mammogram completed Lidia Turner [facility] 12/29/2021 12:32:13 07/11/19 21 completed Yasmin Ho [facility] 03/26/2021 14:58:34 06/09/19 04 augmentation mammoplasty completed Carol Austin [facility] 03/22/2020 14:19:33 06/09/18 96 Dilation and Curettage completed Carol Austin [facility] 03/22/2020 14:19:42 Imaging Results Imaging Date Name Status LastModified by Organiz ation Details LastModified Time 08/28/2021 MAMMO, screening, digital, bilateral completed [facility] [address], [place], [address], 09/01/2021 11:35:23 11/06/2021 DEXA completed [email or web address] [facility] [address], [place], [address], 11/22/2021 14:19:32 Procedure Notes None recorded. Medical Equipment None Reported. Allergies Allergen ID Allergen Name Allergen Category Reaction Reaction Severity Criticality Documentation Date Start Date Code Code System Note Provider Name and Address Organization Details Recorded Time 240 Product containin g penicilli n and antibioti c (product) medicatio n Not available Not available Not available 03/22/[address] [facility], [facility] 0 14:19:17 Medications Name Sig Start Date Stop Date Status Note LastModified by Organization Details LastModified Time doxycycli ne hyclate 100 mg capsule TAKE 1 CAPSULE BY MOUTH TWICE DAILY FOR 10 DAYS 04/10 completed Not Available Not Available Not Available methylphe nidate 10 mg tablet 05/24 completed Not Available Not Available Not Available valacyclo vir 1 gram tablet TAKE 1 TABLET BY ORAL ROUTE EVERY 24 HOURS active takes for shingles Not Available Not Available Not Available hydrocodo ne 5 mg-acetam inophen 325 mg tablet TAKE 1 TO 2 TABLETS BY MOUTH EVERY 4 HOURS NEEDED FOR CHRONIC PAIN 05/24 completed Not Available Not Available Not Available methylphe nidate 20 mg tablet 05/24 completed Not Available Not Available Not Available sulfameth oxazole 800 mg-trimet hoprim 160 mg tablet TAKE 1 TABLET BY MOUTH TWICE DAILY FOR 10 DAYS 04/23 completed Not Available Not Available Not Available triamcino lone acetonide 0.1 % topical cream APPLY TO THE AFFECTED AREA TWICE DAILY NEEDED 04/23 completed Not Available Not Available Not Available levothyro xine 25 mcg tablet 05/24 completed Not Available Not Available Not Available levothyro xine 75 mcg tablet 05/24 completed Not Available Not Available Not Available levothyro xine 88 mcg tablet active Not Available Not Available Not Available phenazopy ridine 100 mg tablet TAKE 1 TABLET BY MOUTH THREE TIMES DAILY FOR 7 DAYS NEEDED 12/31 completed Not Available Not Available Not Available levothyro xine 50 mcg tablet 05/24 completed Not Available Not Available Not Available neomycin- polymyxin -dexameth 3.5 mg/mL-10, 000 unit/mL-0 .1% eye drops 03/26 completed Not Available Not Available Not Available Wellbutri n 75 mg tablet take 1 tablet by oral route 3 times every day 01/20 completed Prescrib ed Elsewher e: Yes [facility] By: pietro silverio DateTime : 12/17/19 12 05:16:17 PM Not Available Not Available Not Available orphenadr ine citrate ER 100 mg tablet,ex tended release 05/24 completed Not Available Not Available Not Available methylpre dnisolone 4 mg tablets in a dose pack FOLLOW PACKAGE DIRECTIO NS 04/23 completed Not Available Not Available Not Available diazepam 5 mg tablet 05/24 completed Not Available Not Available Not Available escitalop janice 10 mg tablet take 1 tablet (10MG) by oral route every day 03/26 completed Prescrib ed Elsewher e: Yes [facility] By: pietro silverio DateTime : 01/21/20 12 01:30:00 PM Not Available Not Available Not Available escitalop janice 20 mg tablet active Not Available Not Available Not Available methylphe nidate CD 20 mg biphasic 30-70 capsule,e xtended release take 1 capsule by oral route every day in the morning before breakfas t active Not Available Not Available No t Available nitrofura ntoin monohydra te/macroc rystals 100 mg capsule TAKE 1 CAPSULE BY MOUTH EVERY 12 HOURS FOR 7 DAYS 12/31 completed Not Available Not Available Not Available levothyro xine 07/25 completed Not Available Not Available Not Available naloxone 4 mg/actuat ion nasal spray SPRAY 1 SPRAY INTO THE NOSTRIL NEEDED OPIOD REVERSAL . MAY REPEAT EVERY 2 TO 3 MINUTES ALTERNAT ING NOSTRILS UNTIL HELP ARRIVES active Not Available Not Available No t Available methylphe nidate 07/25 completed Not Available Not Available Not Available Fluzone Quad (PF) 60 mcg (15 mcg x 4)/0.5 mL IM syringe 03/26 completed Not Available Not Available Not Available Vitals Date Recorded Body height Body mass index (BMI) Body weight Systolic blood pressure Diastolic blood pressure Provider Name and Address Organization Details Last Updated DateTime 07/25/2021 162.56 cm 19.7 kg/m2 66694.12 g 120 mm[Hg] 80 mm[Hg] [facility] 2 15:58:16 Date Recorded Body height Body mass index (BMI) Body weight Systolic blood pressure Diastolic blood pressure Provider Name and Address Organization Details Last Updated DateTime 12/31/2021 162.56 cm 19.4 kg/m2 49574.94 g 125 mm[Hg] 71 mm[Hg] Lidia Turner [facility] 2 11:46:03 Date Recorded Body height Body mass index (BMI) Body weight Systolic blood pressure Diastolic blood pressure Provider Name and Address Organization Details Last Updated DateTime 04/10/2022 158.75 cm 20.5 kg/m2 22950.53 g 108 mm[Hg] 64 mm[Hg] [facility] 2 14:05:30 Date Recorded Body weight Body mass index (BMI) Body height Systolic blood pressure Diastolic blood pressure Provider Name and Address Organization Details Last Updated DateTime 04/23/2023 11045.94 g 20.3 kg/m2 158.75 cm 114 mm[Hg] 70 mm[Hg] Andreina Murphy [facility] 3 15:25:06 Date Recorded Body height Body mass index (BMI) Body weight Systolic blood pressure Diastolic blood pressure Provider Name and Address Organization Details Last Updated DateTime 05/24/2024 158.75 cm 20.5 kg/m2 08130.53 g 127 mm[Hg] 77 mm[Hg] Lidia Turner [facility] 12:18:00 Social History Question Answer Notes LastModified by Organizat ion Details LastModified Time Tobacco Smoking Status Never Smoker Karina Ryne levy, [facility] 04/23/2023 15:20:40 Do You Have An Advance Directive? No [email or web address] Information n ot available 03/27/2021 What Is Your Level Of Alcohol Consumption? Moderate [email or web address] Information not available 03/27/2021 How Many Years Have You Consumed Alcohol? 35 [email or web address] Information not available 03/27/2021 Are You Blind Or Do You Have Difficulty Seeing? No [email or web address] Information n ot available 03/27/2021 What Is Your Level Of Caffeine Consumption? Occasional [email or web address] Information not available 03/27/2021 In The 14 Days Before Symptom Onset, Have You Had Close Contact With A Laboratory-confirm ed COVID-19 While That Case Was Ill? No [email or web address] Information n ot available 03/27/2021 In The 14 Days Before Symptom Onset, Have You Had Close Contact With A Person Who Is Under Investigation For COVID-19 While That Person Was Ill? No Information not available 03/27/2021 Have You Been To An Area Known To Be High Risk For COVID-19? No Information not available 03/27/2021 Are You Deaf Or Do You Have Serious Difficulty Hearing? No Information not available 03/27/2021 What Type Of Diet Are You Following? REGULAR [email or web address] Information n ot available 03/27/2021 What Is The Highest Grade Or Level Of School You Have Completed Or The Highest Degree You Have Received? 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 No [email or web address] Information not available 03/27/2021 Have You Ever Been Counseled For Unhealthy Alcohol Use? No [email or web address] Information not available 04/23/2023 Do You Use Protection During Sex? No Information not available 03/27/2021 Do You Use Your Seat Belt Or Car Seat Routinely? Yes [email or web address] Information not available 03/27/2021 Do You Have Smoke And Carbon Monoxide Detectors In Your Home? Yes [email or web address] Information not available 03/27/2021 How Much Tobacco Do You Smoke? No [email or web address] Information not available 03/27/2021 Do You Feel Stressed (tense, Restless, Nervous, Or Anxious, Or Unable To Sleep At Night)? [id number] [email or web address] Information not available 03/27/2021 Do You Use Any Illicit Or Recreational Drugs? No [email or web address] Information not available 03/27/2021 Do You Use Sunscreen Routinely? Yes Information not available 03/27/2021 Has Tobacco Cessation Counseling Been Provided? No Information not available 04/23/2023 Have You Used IV Drugs? No Information not available 03/27/2021 Do You Or Have You Ever Used Any Other Forms Of Tobacco Or Nicotine? No [email or web address] Information not available 04/23/2023 Sex: Female Functional Status Question Answer Note LastModified by Organizat ion Details LastModified Time Do you have difficulty walking or climbing stairs? No [email or web address] Information not available 04/23/2023 Are you able to walk? YESWOREST [email or web address] Information not available 03/27/2021 Are you able to care for yourself? Yes [email or web address] Information not available 04/23/2023 Do you have difficulty dressing or bathing? No [email or web address] Information not available 04/23/2023 What is your exercise level? Heavy everyday [email or web address] Information not available 03/23/2020 Mental Status None recorded. Family History Relationship Description Onset Age of this Age Resolved Age Notes LastModified by Organization Details LastModified Time Father Chronic obstructive pulmonary disease Not available 2023 11:51:14 Father Malignant neoplasm of urinary bladder Not available 2023 11:51:14 Father Malignant tumor of prostate [email or web address] Not available 05/24 12:28:54 Maternal Aunt Family history of breast cancer Not available 2023 11:51:14 Maternal Grandfather Disorder of stomach Not available 2023 11:51:14 Mother Malignant tumor of ovary 56 [email or web address] Not available 05/24 12:28:24 Brother Hypertensive disorder [email or web address] Not available 2019 10:50:27 Brother Hypercholest erolemia [email or web address] Not available 2019 10:50:33 Medical History Condition Response Allergies (Food, seasonal, environmental ) N Other N Breast Cancer N Drug/Latex Allergies/Reactions Y Blood Transfusion N Dermatologic Disorders N Lung Disease N Defects or Inherited Disease N Breast Problem Y Gestational Diabetes N Hematologic disorders N Anesthesia Complications N History of STI N Deep Vein Thrombosis N Polycystic ovary syndrome N Anxiety Disorder Y Autoimmune disease N Arthritis N Infertility N Polyps N Acid Reflux (GERD) N History of abnormal pap Y Cancer N Stroke N Varicosities N Neurologic/Epilepsy Y Endometriosis N High Cholesterol N Headaches N Fibromyalgia N Kidney Disease N Heart Problems N Kidney or Bladder Problems N Thyroid Problems Y GI Problems Y Eating Disorder N Anemia N Art (IVF or FET) N Psychiatric Illness Y Ovarian Cancer N Diabetes N Pulmonary (TB, Asthma) N Hepatitis/Liver Disease N No Past Medical History N Eczema N Urinary Tract Infection N Abuse/Domestic Violence N Asthma N Trauma/Violence N Depression/ depression Y Heart Disease N Pre-Eclampsia N Hypertension N Osteoporosis Y Thrombophilias N Gynecological History Statement/Question Response Abnormal Pap Y Date of Last Mammogram 08/28/2021 Date of LMP 03/23/2019 N STIs/STDs No HPV Vaccine N 07/11/2020 Current Control Method Menopause Age at First Child 31 If Post Menopausal, Age at Menopause 55 Date of Last Colonoscopy 04/09/2023 Sexually Active? Y Menses Monthly N Date of DEXA bone scan 11/06/2021 Age of first menstrual cycle 9 Date of Last Pap Smear 05/24/2024 Sexual Problems? N LMP Definite N Obstetrics History GPAL:G 4 P 3 0 1 3 Type Value Full Term 3 Spontaneous 1 Living 3 Total 4 Past Encounters Encounter ID Performer Location Encounter Start Date Encounter Closed Date Diagnosis/Indication Diagnosis SNOMED-CT Code Diagnosis ICD10 Code Diagnosis Note [id number] Carolyn Alonzo [facility] [address] [address] 03/23/2020 10:30:54 03/23/2020 12:11:35 Abdominal bloating 924807599 R14.0 Bloating with unknown cause. Pt does have a slightly enlarged uterus. Her mother was diagnosed with ovarian cancer around this age. Pt desires ca-125. Gynecologi c examination 23719245 Z01.419 Take Calcium with Vitamin D 12-1500mg daily. Do monthly self breast exams. It is advised to get annual flu shot in the fall and she could obtain at [facility] or [facility] clinic. If you haven't received the Tdap vaccine in the last 10 years you should obtain one as well. Have mammogram yearly, bone density every 2-3 years and colonoscop y every 5-10 years depending on findings and history. Engage in daily exercise of low impact aerobic exercise 45-60 minutes 4-5 times weekly. Avoid tobacco and illicit drugs as well as using moderation with alcohol intake less than 1-2 8 oz beverages daily. This lifestyle behavior pattern will lead to less health conditions and longer life span. If BMI greater than 25 weight watchers or dietary consult advised. Questions have been answered. Patient appears to understand instructio ns, but if you have any further questions call or respond to this email. Enlarged uterus [id number] 4 N85.2 Slightly enlarged uterus on exam. Pt has not had any more bleeding since last visit. U/S ordered to evaluate. [id number] Rosey Josue [facility] [address] [address] 04/04/2020 15:29:37 04/04/2020 17:48:12 Enlarged uterus 004411642 N85.2 [id number] Tano Tavera MD [facility] [address] [address] 04/04/2020 15:30:27 04/04/2020 17:47:51 Family history of malignant neoplasm of ovary 640180446 Z80.41 this patient is a 54-year-ol d female with a strong family history of ovarian cancer presents for follow-up on pelvic ultrasound and CA 125. Both are normal with respect to the ovaries. We discussed the findings. She is going to follow up in 1 year for pelvic ultrasound CA 125 for her ovaries. She mentioned a breast finding. She is having a mammogram in 2 weeks. I informed her that diagnostic mammogram may be better for a focal lesion. ultrasound the breast may be warranted. She wants to wait forher screening mammogram. [id number] Carolyn Alonzo [facility] [address] [address] 03/27/2021 11:41:14 03/29/2021 19:11:44 Gynecologic examination 47132431 Z01.419 Z11.51 Take Calcium with Vitamin D 12-1500mg daily. Do monthly self breast exams. It is advised to get annual flu shot in the fall and she could obtain at [facility] or [facility]. If you haven't received the Tdap vaccine in the last 10 years you should obtain one as well. Have mammogram yearly, bone density every 2-3 years and colonoscop y every 5-10 years depending on findings and history. Order given for mamm and dexa. Last dexa 2-3 years ago per patient. Pt has declined repeat u/s and ca 125 as discussed at last visit with Dr Tavera. If she changes her mind she will let us know. Engage in daily exercise of low impact aerobic exercise 45-60 minutes 4-5 times weekly. Avoid tobacco and illicit drugs as well as using moderation with alcohol intake less than 1-2 8 oz beverages daily. This lifestyle behavior pattern will lead to less health conditions and longer life span. If BMI greater than 25 weight watchers or dietary consult advised. Questions have been answered. Patient appears to understand instructio ns, but if you have any further questions call or respond to this email. Acute urin christopher tract infection [id number] N39.0 Increase water and decrease caffeine. Urine sent for culture. [id number] [facility] [address] [address] 07/25/2021 15:43:23 07/25/2021 16:20:11 Urinary symptoms [id number] R39.9 Acute urin christopher tract infection [id number] N39.0 Suspect UTI on exam & Urine dip.Will treat for UTI & send results for cx/urinaly sis.If suspect for kidney stones will consider CT/US Kidneys moving forward especially if still havingn sx's.Will contact with results. Time spent in visit is a total of 15 mins with at least 50% of visit consisting of counseling and review of plan of care.Addit ional precaution christopher measures were taken to minimize potential exposure to the Covid-19 virus during this patient? s visit, including available hand collar feller upon arrive, caitlyn e check and being asked a series of screening questions. All staff wore face coverings during this encounter, as well as provided additional cleaning and sanitizing of all surfaces, including countertop s, pens, chairs, door handles, light switches, etc, prior to and following the patient? s visit. Patient is to contact office or go to nearest ED/Urgent care if fever >/= 100.1, pain, excessive bleeding, unusual drainage or swelling in area of concern; or experienci ng worsening sx's or new onset of concerning sx's. Understand ing verbalized . All questions answered to patient satisfacti on. [id number] Carolyn Alonzo [facility] [address] [address] 12/31/2021 11:37:31 01/02/2022 10:26:38 Postmenopausal osteopenia [id number] M85.80 No history of fractures. Discussed labs and imaging with patient. She is very well versed in osteopenia /osteoporo sis along with conservati ve treatment with diet and exercise and she does lead a very healthy lifestyle. Will plan to continue with diet and weight bearing exercise. Handout given. [id number] [facility] [address] [address] 04/10/2022 13:51:29 04/10/2022 16:39:41 Gynecologic examination [id number] Z01.419 Take Calcium with Vitamin D 12-1500mg daily. Do monthly self breast exams. It is advised to get annual flu shot in the fall and she could obtain at [facility] or [facility] take care clinic. If you haven't received the Tdap vaccine in the last 10 years you should obtain one as well. Have mammogram yearly, bone density every 2-3 years and colonoscop y every 5-10 years depending on findings and history. Engage in daily exercise of low impact aerobic exercise 45-60 minutes 4-5 times weekly. Avoid tobacco and illicit drugs as well as using moderation with alcohol intake less than 1-2 8 oz beverages daily. This lifestyle behavior pattern will lead to less health conditions and longer life span. If BMI greater than 25 weight watchers or dietary consult advised. Questions have been answered. Patient appears to understand instructio ns, but if you have any further questions call or respond to this email Pap/hpv sentSTD Screen declinedGe netic Screen discussedC olon Screen PCPDexa Screen PCPRoutine Labs PCPMammo ordered for 2022 Screening mammography [id number] [id number] Z12.31 Cystocele [id number] N81. 10 Grade 0-1 not even reaching the introital opening in lying reclined lithotomy position.N o urinary issues or complaints Offered pessary if this becomes an issue or disrupts quality of life.Will consider this or urogyn ref moving forward. [id number] [facility] [address],[place] [address] 04/23/2023 15:20:19 04/23/2023 15:49:49 Gynecologic examination [id number] Z01.419 Z11.51 Take Calcium with Vitamin D 12-1500mg daily. Do monthly self breast exams. It is advised to get annual flu shot in the fall and she could obtain at [facility] or [facility] care clinic. If you haven't received the Tdap vaccine in the last 10 years you should obtain one as well. Have mammogram yearly, bone density every 2-3 years and colonoscop y every 5-10 years depending on findings and history. Engage in daily exercise of low impact aerobic exercise 45-60 minutes 4-5 times weekly. Avoid tobacco and illicit drugs as well as using moderation with alcohol intake less than 1-2 8 oz beverages daily. This lifestyle behavior pattern will lead to less health conditions and longer life span. If BMI greater than 25 weight watchers or dietary consult advised. Questions have been answered. Patient appears to understand instructio ns, but if you have any further questions call or respond to this email Pap/hpv sentSTD Screen declinedGe netic Screen discussedC olon Screen PCPDexa Screen PCPRoutine Labs PCPMammo ordered [id number] RUSLAN Andre [facility] [address] [address] 05/24/2024 11:50:21 05/24/2024 14:45:18 Gynecologic examination [id number] Z01.419 WWEpostmen opausalPap - UTD / not indicated today. Q3-5yrsSTI screen - declinedMa mmogram - order givenColon cancer screening - UTDDexa - order givenRouti ne labs - UTD/PCPRTC in 1 yr or sooner if needed Do monthly self breast exams.It is advised to get annual flu shot in the fall and she could obtain at local pharmacy. If you haven't received the Tdap vaccine in the last 10 years you should obtain one as well.Have mammogram yearly, bone density every 2-3 years and stay up to date on colon cancer screening. Engage in regular exercise. Avoid tobacco and illicit drugs. This lifestyle behavior pattern will lead to less health conditions and longer life span. If BMI greater than 25 dietary consult advised.Qu estions have been answered. Screening for malignant neoplasm of breast [id number] Z12.39 Screening for osteoporosis 607794220 Z13.820 Family his tory of malignant neoplasm of ovary [id number] Z80.41 desires genetic testingord er placed Family his tory of neoplasm of breast [id number] Z84.89 Health Concerns Section Related Observation LastModified by Organization Detai ls LastModified Time None Recorded Concern Status LastModified by Organization Details LastModified Time None Recorded Advance Directives Directive N: Payers Encounter Date Sequence Insurance Name Policy Number Policy Martinez Covered Member ID Martinez Member ID Guarantor Name 07/25/2021 1 [place] - [place] PRIOR TO 2024 - [employer] - [place] ( - PPO) Hadley Holten [id number] Hadley Holten 12/31/2021 1 [place] - [place] PRIOR TO 2024 - [employer] - [place] ( - PPO) Hadley Holten [id number] Hadley Holten 04/10/2022 1 [place] - DOS PRIOR TO 2024 - [employer] - [place] ( - PPO) Hadley Holten [id number] Hadley Holten 04/23/2023 1 [place] - DOS PRIOR TO 2024 - [employer] - [place] ( - PPO) Hadley Carlisle [id number] Hadley Carlisle 05/24/2024 1 [place] - DOS PRIOR TO 2024 - [employer] - [place] ( - PPO) Hadley Carlisle [id number] Hadley Carlisle Notes Date Note Type Note Provider Name and Address Organization Details Recorded Time 2 text/html Here today for possible UTI.She is post-menopausal.Traveling and held urine a lot.Started to have some flank pain, lower midline pelvic cramping & low grade fever a couple days ago.This waxed/waned but still persists.Neg Hx kidney stonesMonogamousNeg vag d/c, itcing, odorNeg AUBNeg GI issuesNeg incontinence+Urinary urgency, frequency & minimal dysuria/possible bladder spasms. Maryana Allison K[facility]- [address], [place], [address], , P.C[facility] 07/25/2021 16:18:40 2 text/html Osteopenia Carolyn Alonzo [facility], [facility] 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 Post-MenopausalReported bypatient.Menopausal Symptoms:no menopausal symptoms; normal vaginal lubrication Vaginal Bleeding:history of menopause having occurred; no history of post menopausal bleeding Urinary Symptoms:no hematuria; no incontinence; no nocturia; no urinary frequency Vulva:no genital lesion; no vulvar atrophy Vagina:normal vaginal discharge; no vaginal atrophy Breast:no breast lump; no nipple discharge; no breast pain Sexual Complaints:no sexual complaints Psychological Symptoms:no depression; no anxiety Preventive Measures:encourage regular mammograms starting age 40; encourage self breast examination; encourage regular exercise; encourage no tobacco use; needs to schedule mammogram; history of recent colonoscopy Maryana Allison [facility]- [address], [place], [address], , P.C[facility] 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 Post-MenopausalReported bypatient.Menopausal Symptoms:no menopausal symptoms; normal vaginal lubrication Vaginal Bleeding:history of menopause having occurred; no history of post menopausal bleeding Urinary Symptoms:no hematuria; no incontinence; no nocturia; no urinary frequency Vulva:no genital lesion; no vulvar atrophy Vagina:normal vaginal discharge; no vaginal atrophy Breast:no breast lump; no nipple discharge; no breast pain Sexual Complaints:no sexual complaints Psychological Symptoms:no depression; no anxiety Preventive Measures:encourage regular mammograms starting age 40; encourage self breast examination; encourage regular exercise; encourage no tobacco use; needs to schedule mammogram; history of recent colonoscopy RUSLAN Montoya[facility] [address], [place], [address], , P.C[facility] 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 Post-MenopausalReported bypatient.Menopausal Symptoms:no menopausal symptoms; normal vaginal lubrication Vaginal Bleeding:history of menopause having occurred; no history of post menopausal bleeding Urinary Symptoms:no hematuria; no incontinence; no nocturia; no urinary frequency Vulva:no genital lesion; no vulvar atrophy Vagina:normal vaginal discharge; no vaginal atrophy Breast:no breast lump; no nipple discharge; no breast pain Sexual Complaints:no sexual complaints Psychological Symptoms:no depression; no anxiety Preventive Measures:encourage regular mammograms starting age 40; encourage self breast examination; encourage regular exercise; encourage no tobacco useNotes:58yo wwepostmenopausallast pap 04/2023 : nilm, HPV (-)mammogram - has scheduledcolonoscopy UTDdexa 2021 osteopenia mother with ovarian cancer diagnosed at age 56maternal aunt with breast cancerint in genetic testing RUSLAN Andre [address], [place], [address], , P.C[facility] 05/24/2024 14:06:00 OBGyn Episode Ob Episode Information Episode Created Date Number of Fetuses Patient Bloodtype Patient rh Status Prepregnancy Weight lbs Domestic Partner Domestic Partner Phone Father Name Product Transfer Pumper Status 03/23/20 20 1 CLOSED Fetus Data First Name Last Name Admitted to NICU Weight (g) Sex Living Outcome Pediatric Complications Fetus ID Race Codes Race Delivery Type 3373.36 3704 F Full Term 5359 Vaginal Delivery Andrea Calculation Initial Andrea Date Initial Exam Date Initial Exam Provider Initial Ultrasound Date Last Menstrual Period Date Ultra Sound Weeks Gestation 0 Eighteen To Twenty Week Andrea Update Ultra Sound Date Fundal Height At Umbil Quickening Date Ultra Sound Latest Weeks Gestation Final Andrea Confirmed By Final Andrea Confirmed Date Final Andrea Date Ultra Sound Latest Days Gestation 0 0 Menstrual History Last Menstrual Date Menses Monthly On Bcp Conception Prior Menses Frequency Hcg Plus Date Menarche Onset Age Delivery Information Delivery Date Delivery Type Labor Anesthesia Weeks Gestation Incision Type Labor Labor Length Hrs Delivered By Post Complications Tubal Sterilization Discharge Date Comments 9 40 Discharge Information Feeding Method Contraceptive Method Maternal HG B and HCT Levels Ob Episode Information Episode Created Date Number of Fetuses Patient Bloodtype Patient rh Status Prepregnancy Weight lbs Domestic Partner Domestic Partner Phone Father Name Product Transfer Pumper Status 03/23/20 1 CLOSED Fetus Data First Name Last Name Admitted to NICU Weight (g) Sex Living Outcome Pediatric Complications Fetus ID Race Codes Race Delivery Type 3543.46 0704 M Full Term 5358 Vaginal Delivery Andrea Calculation Initial Andrea Date Initial Exam Date Initial Exam Provider Initial Ultrasound Date Last Menstrual Period Date Ultra Sound Weeks Gestation 0 Eighteen To Twenty Week Andrea Update Ultra Sound Date Fundal Height At Umbil Quickening Date Ultra Sound Latest Weeks Gestation Final Andrea Confirmed By Final Andrea Confirmed Date Final Andrea Date Ultra Sound Latest Days Gestation 0 0 Menstrual History Last Menstrual Date Menses Monthly On Bcp Conception Prior Menses Frequency Hcg Plus Date Menarche Onset Age Delivery Information Delivery Date Delivery Type Labor Anesthesia Weeks Gestation Incision Type Labor Labor Length Hrs Delivered By Post Complications Tubal Sterilization Discharge Date Comments 2 40 Discharge Information Feeding Method Contraceptive Method Maternal HG B and HCT Levels Ob Episode Information Episode Created Date Number of Fetuses Patient Bloodtype Patient rh Status Prepregnancy Weight lbs Domestic Partner Domestic Partner Phone Father Name Product Transfer Pumper Status 03/23/20 1 CLOSED Fetus Data First Name Last Name Admitted to NICU Weight (g) Sex Living Outcome Pediatric Complications Fetus ID Race Codes Race Delivery Type 3458.63 9 F Full Term 5357 Vaginal Delivery Andrea Calculation Initial Andrea Date Initial Exam Date Initial Exam Provider Initial Ultrasound Date Last Menstrual Period Date Ultra Sound Weeks Gestation 0 Eighteen To Twenty Week Andrea Update Ultra Sound Date Fundal Height At Umbil Quickening Date Ultra Sound Latest Weeks Gestation Final Andrea Confirmed By Final Andrea Confirmed Date Final Andrea Date Ultra Sound Latest Days Gestation 0 0 Menstrual History Last Menstrual Date Menses Monthly On Bcp Conception Prior Menses Frequency Hcg Plus Date Menarche Onset Age Delivery Information Delivery Date Delivery Type Labor Anesthesia Weeks Gestation Incision Type Labor Labor Length Hrs Delivered By Post Complications Tubal Sterilization Discharge Date Comments 7 40 Discharge Information Feeding Method Contraceptive Method Maternal HG B and HCT Levels Ob Episode Information Episode Created Date Number of Fetuses Patient Bloodtype Patient rh Status Prepregnancy Weight lbs Domestic Partner Domestic Partner Phone Father Name Product Transfer Pumper Status 03/23/20 20 1 CLOSED Fetus Data First Name Last Name Admitted to NICU Weight (g) Sex Living Outcome Pediatric Complications Fetus ID Race Codes Race Delivery Type , Spontane ous [id number] Andrea Calculation Initial Andrea Date Initial Exam Date Initial Exam Provider Initial Ultrasound Date Last Menstrual Period Date Ultra Sound Weeks Gestation 0 Eighteen To Twenty Week Andrea Update Ultra Sound Date Fundal Height At Umbil Quickening Date Ultra Sound Latest Weeks Gestation Final Andrea Confirmed By Final Andrea Confirmed Date Final Andrea Date Ultra Sound Latest Days Gestation 0 0 Menstrual History Last Menstrual Date Menses Monthly On Bcp Conception Prior Menses Frequency Hcg Plus Date Menarche Onset Age Delivery Information Delivery Date Delivery Type Labor Anesthesia Weeks Gestation Incision Type Labor Labor Length Hrs Delivered By Post Complications Tubal Sterilization Discharge Date Comments 6 Discharge Information Feeding Method Contraceptive Method Maternal HG B and HCT Levels
== END 2024-07-05 08:03 | disposition home or self-care (01) ==
LOC: ANHIMG 08:07
PROVIDERS: PCP Internal Medicine; Visit Provider Nurse Practitioner
DX: M85.89 Other specified disorders of bone density and structure, multiple sites (principal); Z13.820 Encounter for screening for osteoporosis; Z12.31 Encounter for screening mammogram for malignant neoplasm of breast
CPT/HCPCS: 77080